=== PATIENT | female | born 1975 | race Caucasian/White ===

== ENCOUNTER 2019-05-20 14:30 | Outpatient (RCR) | payer BC, SELFPAY ==
--- NOTE | 2019-05-13 16:01 | HP.OTEVAL_ITS ---
Patient's Visit Information JOSE MANUEL DOW is a 43 year old F, referred to Occupational Therapy by Leland Escobar DO, with a diagnosis of lymphedema. Date of Evaluation: 05/12/19 Occupational Therapist: ZOEY Storey/Stephani, CHT - Subjective Subjective: This 43 year old female was seen for OT eval with LE lymphedema- pt states this started in February in pubis/abdomen region and has began moving to her right thigh. Pt has extensive sx history. pt states she has colon sx 2003 colectomy - ileostomy, hysterectomy - 2003, - - SB resection with stoma 2004, ureteral stents multiple, nephrectomy RK 2011, bladder surgery 2004, splenectomy 2006, stoma revision 08/2015. 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 - Pain right LE 2 - Lymphedema (Circumferential Measure) Mid-foot: right 20 left 20cm Ankle: right 20cm left 20cm Lower calf: right 18.5cm left 19cm Largest calf: right 29cm left 18cm Below knee: right 28.5 left 29cm Above knee: right 33.5cm left 33.5cm Mid-thigh: right 40.5 left 40.5 Groin: right 50 left 46 Lower Exremity Comments: therapist can see enlargment at pubus region through right groin region - Sensation Sensation Comments: denies - Goals Demonstrate a 20% reduction in edema by d/c: Yes Demonstrate adequate knowledge of self-massage by 2nd week: Yes Demonstrate adequate knowledge skin care/prec by 2nd week: Yes Demonstrate adequate knowledge therapeutic exercises by d/c: Yes Select approp compression garment w/donning/care/wear by d/c: Yes Voice need to replace compression garment every 4-6mo by dc: Yes Goal:: optain custom compression garment - Rehabilitation General Assessment: Pt demo with lymphedema in pubic and right thigh region- pt demo need for skilled therapy 1-2x week for 3 weeks to ed. pt on lymphedema mtg, use of compression garments, ed. pt on self manual lymph massage, and lymph stim ex. Therapist discussed use of custom compression garments to assist with edema mtg. will work with pt on custom that will provide suppot but not interfer with her ileostomy etc. Rehabilitation Potential: Good - Anticipated Interventions Anticipated Interventions: Education re Diagnosis, Manual Lymph Drainage, Education re Life-long lymphedema Management, Education re Skin Care and Precautions, Education re Self Massage Techniques, Education re Correct Donning Tech,Care&Wearing Sched Comp Garments, Home Program - Visit Plan Frequency: 1-2x /Week Duration: 3 Weeks TEXT: Thank you for the opportunity to evaluate your patient. For Medicare and Medicare HMO plans, please review the plan of care and approve it. It will need to be FAXED BACK to us at [phone] for Medicare purposes. Please let me know if there are questions or concerns regarding this plan of care. Physician Signature: Date:
--- NOTE | 2019-09-02 18:37 | HP.OT.NRP ---
HP - Discharge Summary - Patient Information JOSE MANUEL DOW was seen in my office for initial evaluation on 05/12/19. The following Plan of Care was established for this patient: Initial Frequency: 1-2x /Week Initial Duration: 3 Weeks Plan: cont MLD until pt was able to get compression garment - Anticipated Interventions Anticipated Interventions: Education re Diagnosis, Manual Lymph Drainage, Education re Life-long lymphedema Management, Education re Skin Care and Precautions, Education re Self Massage Techniques, Education re Correct Donning Tech,Care&Wearing Sched Comp Garments, Home Program This patient was last seen in our office 05/28/19. Pertinent comments regarding their Occupational therapy will appear below: PT was seen for 3 OT eval for lymphedema and cancelled her last scheduled apt- pt has not scheduled further OT aps and is d/c due to time lapse in care. At this point I will be discontinuing this patient from occupational therapy. I would be happy to see this patient again in the future if found appropriate by the physician. Thank you! Lyubov Polo, OTR/L, CHT
== END 2019-05-20 19:00 | disposition home or self-care (01) ==
LOC: OT 14:30
PROVIDERS: Family Provider Family Medicine; PCP Family Medicine; Referring Provider Internal Medicine Hematology & Oncology; Visit Provider Internal Medicine Hematology & Oncology
DX: I89.0 Lymphedema, not elsewhere classified (principal)
CPT/HCPCS: 97140; 97166

== ENCOUNTER 2020-06-06 13:19 | Outpatient (RCR) | payer BC, SELFPAY ==
[2020-05-23 15:59] LABS: Absolute Lymphocyte Count 5.11 X10^3/uL (0.83-4.51); Absolute Neutrophil Count 5.3 X10^3/uL (2.0-7.7); Basophil# 0.08 X10^3/uL; Basophil% 0.7 % (0-1); Eosinophil# 0.13 X10^3/uL; Eosinophils% 1.1 % (0-5); Hematocrit 37.3 % (37-47); Hemoglobin 11.5 g/dL (12.0-15.0); Lymphocyte # 5.11 X10^3/ul (4.0); Lymphocyte % 43.5 % (19-41); Mean Corp Hgb Conc 30.8 g/dL (32-36); Mean Corpuscular Hgb 29.4 pg (27.0-32.0); Mean Corpuscular Volume 95.4 fL (81-99); Mean Platelet Vol. 11.6 fl (6.2-12.0); Monocyte# 1.01 X10^3/uL; Monocyte% 8.6 % (0-10); NRBC Flagged by Analyzer 0.5 % (0-5); POSITIVE DIFFERENTIAL YES; Platelet Count 635 K/mm3 (150-450); RBC Distribution Width CV 18.2 % (11.6-14.6); RBC Distribution Width SD 63.7 fl (35.1-43.9); Red Blood Count 3.91 M/mm3 (4.2-5.4); White Blood Count 11.8 K/mm3 (4.4-11.0)
[2020-05-23 16:02] LABS: Differential Indicated SCAN CRITERIA MET
[2020-05-23 16:18] LABS: ALB/GLOB Ratio 0.7 RATIO (0.9-2.4); AST(SGOT) 18 U/L (15-37); Alanine Aminotransfer ALT/SGPT 9 U/L (13-56); Albumin, Serum 3.2 g/dL (3.2-5.0); Alkaline Phosphatase 159 U/L (45-117); Anion Gap 7 (5-15); BUN 33 mg/dL (7-18); BUN/Creat Ratio 35.1 RATIO (10-20); Calcium,Total 9.1 mg/dL (8.5-10.1); Chloride 103 mmol/L (98-107); Creatinine, Serum 0.94 mg/dL (0.55-1.02); EST Glomerular Filtration Rate 68 mL/min (>60); Est Glom Filt Rate - Afr Amer 82 mL/min (>60); Globulin 4.4 g/dL (2.2-4.2); Glucose 136 mg/dL (74-106); Magnesium 2.3 mg/dL (1.6-2.6); Phosphorus 2.8 mg/dL (2.5-4.9); Potassium 3.5 mmol/L (3.5-5.1); Protein, Total 7.6 g/dL (6.4-8.2); Sodium Level 140 mmol/L (136-145)
[2020-05-23 16:22] LABS: Differential Comment SCANNED
[2020-05-30 15:33] LABS: Hematocrit 37.2 % (37-47); Hemoglobin 11.4 g/dL (12.0-15.0); Mean Corp Hgb Conc 30.6 g/dL (32-36); Mean Corpuscular Hgb 29.3 pg (27.0-32.0); Mean Corpuscular Volume 95.6 fL (81-99); Mean Platelet Vol. 11.9 fl (6.2-12.0); Platelet Count 557 K/mm3 (150-450); RBC Distribution Width CV 17.8 % (11.6-14.6); RBC Distribution Width SD 61.7 fl (35.1-43.9); Red Blood Count 3.89 M/mm3 (4.2-5.4); White Blood Count 13.3 K/mm3 (4.4-11.0)
[2020-05-31 16:36] LABS: Absolute Lymphocyte Count 2.01 X10^3/uL (0.83-4.51); Absolute Neutrophil Count 11.7 X10^3/uL (2.0-7.7); Basophil# 0.07 X10^3/uL; Basophil% 0.5 % (0-1); Eosinophil# 0.01 X10^3/uL; Eosinophils% 0.1 % (0-5); Hematocrit 36.1 % (37-47); Hemoglobin 11.2 g/dL (12.0-15.0); Lymphocyte # 2.01 X10^3/ul (4.0); Lymphocyte % 13.5 % (19-41); Mean Corpuscular Volume 93.5 fL (81-99); Mean Platelet Vol. 11.8 fl (6.2-12.0); Monocyte# 0.95 X10^3/uL; Monocyte% 6.4 % (0-10); NRBC Flagged by Analyzer 0.1 % (0-5); Neutrophil # 11.66 X10^3/uL (2.7-7.7); Neutrophil % 78.6 % (47-70); Platelet Count 540 K/mm3 (150-450); RBC Distribution Width CV 17.2 % (11.6-14.6); RBC Distribution Width SD 58.8 fl (35.1-43.9); Red Blood Count 3.86 M/mm3 (4.2-5.4); White Blood Count 14.8 K/mm3 (4.4-11.0)
[2020-05-31 17:16] LABS: ALB/GLOB Ratio 0.8 RATIO (0.9-2.4); AST(SGOT) 12 U/L (15-37); Alanine Aminotransfer ALT/SGPT 8 U/L (13-56); Albumin, Serum 3.6 g/dL (3.2-5.0); Alkaline Phosphatase 132 U/L (45-117); Anion Gap 6 (5-15); BUN 43 mg/dL (7-18); BUN/Creat Ratio 30.3 RATIO (10-20); Calcium,Total 9.3 mg/dL (8.5-10.1); Chloride 104 mmol/L (98-107); Creatinine, Serum 1.42 mg/dL (0.55-1.02); EST Glomerular Filtration Rate 42 mL/min (>60); Est Glom Filt Rate - Afr Amer 51 mL/min (>60); Globulin 4.3 g/dL (2.2-4.2); Glucose 170 mg/dL (74-106); Magnesium 2.3 mg/dL (1.6-2.6); Potassium 4.7 mmol/L (3.5-5.1); Protein, Total 7.9 g/dL (6.4-8.2); Sodium Level 139 mmol/L (136-145)
[2020-05-31 17:20] LABS: Differential Indicated MANUAL DIFF; Myelocyte 1 (0-0); Neutrophil-Band 1 % (0-5); Neutrophil-Segmented 48 % (47-70); Total Cells Counted 100 (MANUAL DIFF)
[2020-05-31 17:21] LABS: Acanthocytes 1+; Anisocytosis 1+; Burr Cells 1+; Differential Comment SCANNED; Eosinophil 2 % (0-5); Lymphocyte 38 % (19-41); Monocyte 10 % (0-10); Platelet Estimate SLT INC (ADEQ)
[2020-05-31 17:23] LABS: Absolute Neutrophil Count 6.5 X10^3/uL (2.0-7.7); Lymphocyte # 5.05 X10^3/ul (4.0); Neutrophil # 6.52 X10^3/uL (2.7-7.7)
[2020-05-31 17:24] LABS: Absolute Lymphocyte Count 5.05 X10^3/uL (0.83-4.51)
[2020-06-01 12:45] LABS: Pathologist Review Reviewed
[2020-06-03 10:29] LABS: EST Glomerular Filtration Rate 57 mL/min (>60); Est Glom Filt Rate - Afr Amer 69 mL/min (>60)
[2020-06-06 13:44] LABS: ALB/GLOB Ratio 0.7 RATIO (0.9-2.4); AST(SGOT) 16 U/L (15-37); Alanine Aminotransfer ALT/SGPT 7 U/L (13-56); Albumin, Serum 3.2 g/dL (3.2-5.0); Alkaline Phosphatase 117 U/L (45-117); Anion Gap 9 (5-15); BUN 35 mg/dL (7-18); BUN/Creat Ratio 27.6 RATIO (10-20); Calcium,Total 9.2 mg/dL (8.5-10.1); Chloride 107 mmol/L (98-107); Creatinine, Serum 1.27 mg/dL (0.55-1.02); EST Glomerular Filtration Rate 48 mL/min (>60); Est Glom Filt Rate - Afr Amer 58 mL/min (>60); Globulin 4.4 g/dL (2.2-4.2); Glucose 208 mg/dL (74-106); Magnesium 2.3 mg/dL (1.6-2.6); Phosphorus 2.8 mg/dL (2.5-4.9); Potassium 4.1 mmol/L (3.5-5.1); Protein, Total 7.6 g/dL (6.4-8.2); Sodium Level 139 mmol/L (136-145); Triglycerides 299 mg/dL
[2020-06-06 13:48] LABS: Vitamin D,25 Hydroxy 20.2 ng/mL
[2020-06-06 14:07] LABS: Absolute Neutrophil Count 9.2 X10^3/uL (2.0-7.7); Basophil# 0.07 X10^3/uL; Basophil% 0.6 % (0-1); Eosinophil# 0.15 X10^3/uL; Eosinophils% 1.3 % (0-5); Hematocrit 35.7 % (37-47); Lymphocyte % 9.6 % (19-41); Mean Corp Hgb Conc 30.8 g/dL (32-36); Mean Corpuscular Volume 94.2 fL (81-99); Mean Platelet Vol. 12.1 fl (6.2-12.0); Monocyte# 0.85 X10^3/uL; Monocyte% 7.4 % (0-10); NRBC Flagged by Analyzer 0.2 % (0-5); Neutrophil # 9.18 X10^3/uL (2.7-7.7); Neutrophil % 80.2 % (47-70); Platelet Count 441 K/mm3 (150-450); RBC Distribution Width CV 17.3 % (11.6-14.6); RBC Distribution Width SD 59.7 fl (35.1-43.9); Red Blood Count 3.79 M/mm3 (4.2-5.4); White Blood Count 11.5 K/mm3 (4.4-11.0)
== END 2020-06-13 18:00 | disposition home or self-care (01) ==
LOC: HHLAB 13:19
PROVIDERS: PCP Family Medicine
DX: R78.81 Bacteremia (principal)
CPT/HCPCS: 80053; 82306; 82565; 83735; 84100; 84478; 85025; 85027

== ENCOUNTER → 2021-05-22 14:11 | Outpatient (CLI) | payer BC, SELFPAY ==
--- NOTE | 2021-05-22 14:13 | VDLE_ITS ---
Reason For Study: Leg swelling RIGHT GSV is normal. CFV is compressible, spontaneous, phasic, competent and demonstrates normal augmentation. FV is compressible, spontaneous, phasic, competent and demonstrates normal augmentation. POP V is compressible, spontaneous, phasic, competent and demonstrates normal augmentation. T/P Trunk is compressible. PTV is compressible. RT PerV is compressible. Procedure This is a venous duplex using B-mode, color flow and spectral Doppler. Exam performed in department. A preliminary report was called and/or faxed to [facility]. VL/Venous Duplex US, Unilateral Interpretation Summary There is no evidence of right lower extremity deep vein thrombosis. Right great saphenous vein appears patent and compressible segmentally. Ordering Physician: Leland Escobar Referring Physician: Santo Ramsey Performed By: Zabrina Hanks RVT
== END ==
PROVIDERS: PCP Family Medicine; Visit Provider Internal Medicine Hematology & Oncology
DX: M79.89 Other specified soft tissue disorders (principal)
CPT/HCPCS: 93971

== ENCOUNTER 2024-07-08 09:30 | Outpatient (RCR) | payer BC, SELFPAY ==
[2024-07-08 10:03] VITALS: BP 116/61; PULSE 89; RESP 18; TEMP 36.6
== END 2024-07-13 23:59 | disposition home or self-care (01) ==
LOC: WC 09:30
PROVIDERS: PCP Family Medicine; Referring Provider Internal Medicine Hematology & Oncology; Visit Provider Nurse Practitioner
DX: L59.8 Other specified disorders of the skin and subcutaneous tissue related to radiation (principal); Z93.2 Ileostomy status; Z93.6 Other artificial openings of urinary tract status; D49.0 Neoplasm of unspecified behavior of digestive system; Y84.2 Radiological procedure and radiotherapy as the cause of abnormal reaction of the patient, or of later complication, without mention of misadventure at the time of the procedure; N30.90 Cystitis, unspecified without hematuria; Z79.899 Other long term (current) drug therapy; Z92.3 Personal history of irradiation; R63.0 Anorexia
CPT/HCPCS: 99213; G0463

== ENCOUNTER 2024-07-22 08:39 | Outpatient (CLI) | payer BC, SELFPAY ==
[2024-07-22 08:48] VITALS: BP 125/59; PULSE 87; RESP 16; TEMP 36.9; O2SAT 99; BMI 18.3
[2024-07-22 09:31] VITALS: BP 107/48; PULSE 83; RESP 16; TEMP 36.8
[2024-07-22 10:36] VITALS: BP 119/55; PULSE 79; RESP 16; TEMP 36.2; O2SAT 92
[2024-07-22 10:56] VITALS: BP 123/55; PULSE 80; RESP 16; TEMP 36.7; O2SAT 99
[2024-07-22 11:18] VITALS: BP 123/55; PULSE 80; RESP 14; TEMP 36.7
--- NOTE | 2024-09-23 10:48 | HBO.PN.PCM_ITS ---
History of Present Illness Date of Service: 09/22/24 Chief Complaint: Radionecrosis of the brain History of Wound: This is a 48-year-old female with a history of mucinous adenocarcinoma of the colon in 2005 for which she has undergone multiple resections for metastatic disease. As result, she has required an ileostomy and nephrostomy, and resultant short-bowel syndrome. As result, the patient the patient requires nutrition by means of central venous administration of TPN. The patient also has a history of right radical nephrectomy. She has received radiation therapy to the abdomen and chemotherapy with respect to her metastatic colon cancer. 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 She has been scheduled and preauthorized for hyperbaric oxygen therapy for a total of 30 treatments. The indications and risks of hyperbaric oxygen therapy have been thoroughly explained. The expected benefits have also been discussed with the patient. Patient has elected to proceed, and has provided the appropriate consent. Objective Data Objective Data The patient underwent hyperbaric oxygen therapy, the 1st of an expected 30 such sessions. Hyperbaric oxygen therapy was administered as per the facility protocol. Hyperbaric oxygen therapy was administered for 90 minutes at 2 eboni with no air breaks. The patient tolerated hyperbaric oxygen therapy well, without complaints or complications. Upon emergence from the hyperbaric chamber, the patient's vital signs remained stable. The patient was discharged in good condition. Vital Signs: Vital Signs Temp Pulse Resp BP Pulse Ox O2 Del Method 98.1 F 80 14 123/55 H 99 Room Air 07/22/24 11:18 07/22/24 11:18 07/22/24 11:18 07/22/24 11:18 07/22/24 10:56 07/22/24 10:56 Oxygen Delivery Method Room Air Weight: 110 lb Body Mass Index (BMI) 18.3 Exam Physical Exam Const alert, oriented x3 and no apparent distress Constitutional Narrative: The patient appears frail and chronically ill. General Appearance: cooperative HEENT normocephalic and TM's normal bilaterally Head and Scalp: atraumatic Eyes EOMs intact bilaterally Neck no JVD General: trachea midline Resp normal respiratory effort and no use of accessory muscles Resp Narrative: Respirations were noted to be unlabored. Effort and Inspection: able to speak in complete sentences Cardio regular rate Psych affect normal Appearance: grossly normal and well kempt Speech: normal speech Charges/Coding Wound Center CF Procedures HBO Supervision: [id number] Hyperbaric Oxygen; supervision Assessment/Plan Assessment/Plan (1) Radionecrosis: CODE(S): L59.8 - Other specified disorders of the skin and subcutaneous tissue related to radiation; Y84.2 - Radiological procedure and radiotherapy as the cause of abnormal reaction of the patient, or of later complication, without mention of misadventure at the time of the procedure (2) History of colon cancer: CODE(S): Z85.038 - Personal history of other malignant neoplasm of large intestine (3) Rectal tumor: CODE(S): D49.0 - Neoplasm of unspecified behavior of digestive system (4) On total parenteral nutrition (TPN): CODE(S): Z78.9 - Other specified health status (5) Short bowel syndrome: CODE(S): K91.2 - Postsurgical malabsorption, not elsewhere classified (6) H/O unilateral nephrectomy: CODE(S): Z90.5 - Acquired absence of kidney (7) Ileostomy status: CODE(S): Z93.2 - Ileostomy status PLAN: Plan This is a 48-year-old female with metastatic cancer to the brain, for which she has previously undergone radiation therapy. As result, she has developed radio necrosis of the brain, for which she is now to undergo sessions of hyperbaric oxygen therapy. The patient has tolerated her initial hyperbaric oxygen therapy session well, and hyperbaric oxygen therapy sessions will continue as per the patient's medical plan.
== END 2024-07-22 23:59 | disposition home or self-care (01) ==
LOC: MEDOUTP 08:40
PROVIDERS: PCP Family Medicine; Referring Provider Internal Medicine Hematology & Oncology; Visit Provider Internal Medicine Hematology & Oncology
DX: D53.1 Other megaloblastic anemias, not elsewhere classified (principal); D63.8 Anemia in other chronic diseases classified elsewhere; D50.0 Iron deficiency anemia secondary to blood loss (chronic)
CPT/HCPCS: 36430; 86850; 86900; 86901; 86920; 86922; P9016; A4216

== ENCOUNTER 2024-09-25 10:30 | Outpatient (RCR) | payer BC, SELFPAY ==
[2024-07-14 00:47] VITALS: BP 116/61; PULSE 89; RESP 18; TEMP 36.6
[2024-09-22 13:48] VITALS: BP 142/78; BP 189/94; PULSE 76; PULSE 83; RESP 16; TEMP 35.7; TEMP 35.9
[2024-09-23 12:44] VITALS: BP 138/76; BP 192/85; PULSE 85; PULSE 90; RESP 17; RESP 18; TEMP 36.2; TEMP 36.4
--- NOTE | 2024-09-23 13:39 | PCM.HBO.PN ---
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 Patient just got out of the hospital from [facility] over about a month ago she takes care of herself she has an ileostomy and a nephrostomy tube. She also has a PICC line for her TPN. That she takes care of herself. Progress of Wound: Patient tolerated treatments well vital signs were stable she has no concerns this was #2 of #30 treatments that she will receive Subjective Subjective Patient was pleased and will continue treatments Objective Data Objective Data Vital signs are stable and patient was admitted and discharged with good condition Vital Signs: Vital Signs Temp Pulse Resp BP 97.5 F L 90 18 192/85 H 09/23/24 12:44 09/23/24 12:44 09/23/24 12:44 09/23/24 12:44 Lab / Micro Data Attestation: I reviewed the patient's lab results. Exam Physical Exam Const alert, oriented x3 and no apparent distress Constitutional Narrative: The patient appears frail and chronically ill. General Appearance: cooperative HEENT normocephalic and TM's normal bilaterally Head and Scalp: atraumatic Eyes EOMs intact bilaterally Neck no JVD General: trachea midline Resp normal respiratory effort and no use of accessory muscles Resp Narrative: Respirations were noted to be unlabored. Effort and Inspection: able to speak in complete sentences Cardio regular rate Psych affect normal Appearance: grossly normal and well kempt Speech: normal speech Nursing Assessment and Debridement Post-Debridement Measurements and Additional Note: Post-Debridement Measurements/Treatment WC - Nurse 3 - General Ulcer D/C NN Start: 07/23/24 08:14 Freq: Status: Active Protocol: Activity Type Activity Date Activity User E-sign Co-sign Detail Recorded Client Recorded Date Recorded By Document 09/22/24 13:48 JF 0000 09/22/24 13:58 JF 09/22/24 13:48 Pain Scale: 0-10 Numeric Is Patient Pain Free? Yes WC - Visit Discharge Discharge Condition Stable Ambulatory Status Ambulatory Transportation Private Auto Medication Reconcilliation completed & Yes provided to patient/care provider Clinical Summary of Care Provided Yes Assessment/Plan Assessment/Plan (1) Radionecrosis: CODE(S): L59.8 - Other specified disorders of the skin and subcutaneous tissue related to radiation; Y84.2 - Radiological procedure and radiotherapy as the cause of abnormal reaction of the patient, or of later complication, without mention of misadventure at the time of the procedure (2) History of colon cancer: CODE(S): Z85.038 - Personal history of other malignant neoplasm of large intestine (3) Rectal tumor: CODE(S): D49.0 - Neoplasm of unspecified behavior of digestive system (4) On total parenteral nutrition (TPN): CODE(S): Z78.9 - Other specified health status (5) Short bowel syndrome: CODE(S): K91.2 - Postsurgical malabsorption, not elsewhere classified QUALIFIERS: Short bowel syndrome type: unspecified whether colon in continuity Qualified Code(s): K90.829 - Short bowel syndrome, unspecified (6) H/O unilateral nephrectomy: CODE(S): Z90.5 - Acquired absence of kidney (7) Ileostomy status: CODE(S): Z93.2 - Ileostomy status PLAN: Plan This is a 48-year-old female with metastatic cancer to the brain, for which she has previously undergone radiation therapy. As result, she has developed radionecrosis of the brain, for which she is now to undergo sessions of hyperbaric oxygen therapy. The patient has tolerated her initial hyperbaric oxygen therapy session well, and hyperbaric oxygen therapy sessions will continue as per the patient's medical plan.
--- NOTE | 2024-09-24 10:53 | PN.PCM_ITS ---
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 Patient just got out of the hospital from [facility] over about a month ago she takes care of herself she has an ileostomy and a nephrostomy tube. She also has a PICC line for her TPN. That she takes care of herself. Progress of Wound: Patient presents today for hyperbaric oxygen therapy treatment. Today's session represents the 3rd treatment of a planned 30 sessions. Tolerance: Hyperbaric oxygen therapy was administered as per the facility's protocol. 100% oxygen at 2 RADHA for 90 minutes without air breaks. Adrianna tolerated hyperbaric oxygen therapy without any complaints or complications. Upon emergence from the chamber, her vitals remained stable and she was discharged in stable condition. Pre and post blood glucose readings as documented. Objective Data Objective Data Vital Signs: Vital Signs Temp Pulse Resp BP 97.5 F L 90 18 192/85 H 09/23/24 12:44 09/23/24 12:44 09/23/24 12:44 09/23/24 12:44 Charges/Coding Wound Center CF Procedures HBO Supervision: [id number] Hyperbaric Oxygen; supervision Physical Exam Const alert and oriented x3 General Appearance: cooperative HEENT normocephalic and TM's normal bilaterally Eyes PERRL Resp normal respiratory effort and clear to auscultation bilaterally Effort and Inspection: able to speak in complete sentences Cardio regular rate and regular rhythm Extremity normal capillary refill Neuro CN's II-XII intact bilaterally Psych affect normal Debridement Note Debridement Note Post-Debridement Measurements and Additional Note: Post-Debridement Measurements/Treatment WC - Nurse 3 - General Ulcer D/C NN Start: 07/23/24 08:14 Freq: Status: Active Protocol: Activity Type Activity Date Activity User E-sign Co-sign Detail Recorded Client Recorded Date Recorded By Document 09/22/24 13:48 JF 0000 09/22/24 13:58 JF 09/22/24 13:48 Pain Scale: 0-10 Numeric Is Patient Pain Free? Yes WC - Visit Discharge Discharge Condition Stable Ambulatory Status Ambulatory Transportation Private Auto Medication Reconcilliation completed & Yes provided to patient/care provider Clinical Summary of Care Provided Yes Assessment/Plan Assessment/Plan (1) Radionecrosis: CODE(S): L59.8 - Other specified disorders of the skin and subcutaneous tissue related to radiation; Y84.2 - Radiological procedure and radiotherapy as the cause of abnormal reaction of the patient, or of later complication, without mention of misadventure at the time of the procedure (2) History of colon cancer: CODE(S): Z85.038 - Personal history of other malignant neoplasm of large intestine (3) Rectal tumor: CODE(S): D49.0 - Neoplasm of unspecified behavior of digestive system (4) On total parenteral nutrition (TPN): CODE(S): Z78.9 - Other specified health status (5) Short bowel syndrome: CODE(S): K91.2 - Postsurgical malabsorption, not elsewhere classified QUALIFIERS: Short bowel syndrome type: unspecified whether colon in continuity Qualified Code(s): K90.829 - Short bowel syndrome, unspecified (6) H/O unilateral nephrectomy: CODE(S): Z90.5 - Acquired absence of kidney (7) Ileostomy status: CODE(S): Z93.2 - Ileostomy status PLAN: Plan This is a 48-year-old female with metastatic cancer to the brain, for which she has previously undergone radiation therapy. As result, she has developed radionecrosis of the brain, for which she is now to undergo sessions of hyperb [facility] oxygen therapy. The patient has tolerated her initial hyperbaric oxygen therapy session well, and hyperbaric oxygen therapy sessions will continue as per the patient's medical plan.
[2024-09-24 12:26] VITALS: BP 188/88; BP 190/85; PULSE 80; PULSE 92; RESP 16; TEMP 36; TEMP 36.2
[2024-09-25 11:58] VITALS: BP 136/69; BP 148/72; PULSE 76; PULSE 79; RESP 15; RESP 17; TEMP 36.1
--- NOTE | 2024-09-25 12:59 | PCM.HBO.PN ---
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 Patient just got out of the hospital from [facility] over about a month ago she takes care of herself she has an ileostomy and a nephrostomy tube. She also has a PICC line for her TPN. That she takes care of herself. Progress of Wound: Patient presents today for hyperbaric oxygen therapy treatment. Today's session represents the 4th treatment of a planned 30 sessions. Tolerance: Hyperbaric oxygen therapy was administered as per the facility's protocol. 100% oxygen at 2 RADHA for 90 minutes without air breaks. Luci tolerated hyperbaric oxygen therapy without any complaints or complications. Upon emergence from the chamber, her vitals remained stable and she was discharged in stable condition. Objective Data Objective Data Vital Signs: Vital Signs Temp Pulse Resp BP 97.1 F L 92 16 188/88 H 09/24/24 12:26 09/24/24 12:26 09/24/24 12:26 09/24/24 12:26 Exam Physical Exam Const alert, oriented x3 and no apparent distress Psych mental status grossly normal, thought process normal, cooperative, affect normal and speech normal Nursing Assessment and Debridement Post-Debridement Measurements and Additional Note: Post-Debridement Measurements/Treatment WC - Nurse 3 - General Ulcer D/C NN Start: 07/23/24 08:14 Freq: Status: Active Protocol: Activity Type Activity Date Activity User E-sign Co-sign Detail Recorded Client Recorded Date Recorded By Document 09/22/24 13:48 JF 0000 09/22/24 13:58 JF 09/22/24 13:48 Pain Scale: 0-10 Numeric Is Patient Pain Free? Yes WC - Visit Discharge Discharge Condition Stable Ambulatory Status Ambulatory Transportation Private Auto Medication Reconcilliation completed & Yes provided to patient/care provider Clinical Summary of Care Provided Yes Assessment/Plan Assessment/Plan (1) Radionecrosis: CODE(S): L59.8 - Other specified disorders of the skin and subcutaneous tissue related to radiation; Y84.2 - Radiological procedure and radiotherapy as the cause of abnormal reaction of the patient, or of later complication, without mention of misadventure at the time of the procedure (2) History of colon cancer: CODE(S): Z85.038 - Personal history of other malignant neoplasm of large intestine (3) Rectal tumor: CODE(S): D49.0 - Neoplasm of unspecified behavior of digestive system (4) On total parenteral nutrition (TPN): CODE(S): Z78.9 - Other specified health status (5) Short bowel syndrome: CODE(S): K91.2 - Postsurgical malabsorption, not elsewhere classified QUALIFIERS: Short bowel syndrome type: unspecified whether colon in continuity Qualified Code(s): K90.829 - Short bowel syndrome, unspecified (6) H/O unilateral nephrectomy: CODE(S): Z90.5 - Acquired absence of kidney (7) Ileostomy status: CODE(S): Z93.2 - Ileostomy status PLAN: Plan This is a 48-year-old female with metastatic cancer to the brain, for which she has previously undergone radiation therapy. As result, she has developed radionecrosis of the brain and she is now undergoing a planned 30 sessions of hyperbaric oxygen therapy. The patient has tolerated her 4th of 30 planned hyperbaric oxygen therapy sessions well, and hyperbaric oxygen therapy sessions will continue as per the patient's medical plan.
== END 2024-10-13 23:59 | disposition home or self-care (01) ==
LOC: WC 10:30
PROVIDERS: PCP Family Medicine; Referring Provider Internal Medicine Hematology & Oncology; Visit Provider Nurse Practitioner
DX: L59.8 Other specified disorders of the skin and subcutaneous tissue related to radiation (principal); Z93.2 Ileostomy status; Z93.6 Other artificial openings of urinary tract status; K91.2 Postsurgical malabsorption, not elsewhere classified; D49.0 Neoplasm of unspecified behavior of digestive system; Y84.2 Radiological procedure and radiotherapy as the cause of abnormal reaction of the patient, or of later complication, without mention of misadventure at the time of the procedure; N30.90 Cystitis, unspecified without hematuria; Z79.899 Other long term (current) drug therapy; Z85.038 Personal history of other malignant neoplasm of large intestine; Z90.5 Acquired absence of kidney
CPT/HCPCS: 99183; G0277

== ENCOUNTER 2024-10-12 22:50 | Inpatient (IN) | payer BC, SELFPAY ==
--- NOTE | 2024-10-12 00:05 | RAD_ITS ---
STUDY: X-RAY CHEST REASON FOR EXAM: Female, 49 years old. seizure TECHNIQUE: Single frontal view of the chest. COMPARISON: June 09, 2009 images only without report FINDINGS: Right IJ catheter terminates 6 cm below the atrial caval junction. This appears to been advanced or replaced since the previous exam. It appears to be kinked proximally probably external to the patient. No pneumothorax. The lungs are clear and expanded. There is no demonstrated pleural abnormality. Normal size heart. Normal mediastinum and antonio. Normal visualized pulmonary arteries. Normal visualized aortic arch and descending thoracic aorta. Normal visualized thoracic spine. Normal visualized ribs, clavicles, and shoulders. There is no demonstrated abnormality of the visualized soft tissue structures of the upper abdomen. RAD/Chest 1 View (Portable) IMPRESSION: Right IJ catheter as above appears to terminate in the right atrium and appears kinked proximally. Electronically Signed: Brian Dodson MD at 1:11 [facility] ,
[2024-10-12 22:51] VITALS: BP 173/69; PULSE 88; RESP 22; TEMP 36.1; O2SAT 91; BMI 18.0
[2024-10-12 22:52] VITALS: RESP 22; O2SAT 93
--- NOTE | 2024-10-12 23:31 | EKG12_ITS ---
Test Reason : SEIZURE Blood Pressure : */* mmHG Vent. Rate : 107 BPM Atrial Rate : 107 BPM P-R Int : 174 ms QRS Dur : 84 ms QT Int : 336 ms P-R-T Axes : 66 40 54 degrees QTcB Int : 448 ms Sinus tachycardia Otherwise normal ECG Confirmed by PRAVEEN ISBELL, ALVAREZ ([id number]), continuity editor LAWRENCE KHAN ([id number]) on 10/15/2024 6:09:38 AM Referred By: Confirmed By: ALVAREZ MORTON MD
--- NOTE | 2024-10-12 23:31 | CT_ITS ---
STUDY: CT BRAIN WITHOUT CONTRAST REASON FOR EXAM: Female, 49 years old. seizure RADIATION DOSAGE (If Supplied By Facility): CTDIvol = ( 44.99 ) mGy, DLP = ( 863.60 ) mGycm TECHNIQUE: Transaxial CT imaging of the brain was performed without administration of intravenous contrast material. Individualized dose optimization techniques were used for this CT. The protocol utilizes one or more of the following dose reduction techniques: automated exposure control, adjustment of mA and/or kV according to patient size,and/or use of iterative reconstruction technique. COMPARISON: No relevant priors. FINDINGS: Normal soft tissue structures. Normal calvarium. Normal size ventricles and extra-axial spaces for the patient''s age. Normal white matter tracts of the cerebral hemispheres. Normal basal ganglia and thalami. Normal brainstem. Normal cerebellum. There is no intracranial hemorrhage. There are no findings of an acute ischemic infarction. Normal visualized paranasal sinuses. CT/Brain/Head without Contrast IMPRESSION: Normal unenhanced CT scan of the brain. Electronically Signed: Brian Dodson MD at 1:07 EST ,
--- NOTE | 2024-10-12 23:34 | ED.RN ---
2330: MULTIPLE ATTEMPTS AT A PERIPHERAL IV BY THIS NURSE AND Sybil NJ. BLOOD OBTAINED BY PERIPHERAL VENIPUNCTURE. DR. Sybil MURPHY NOTIFIED OF FAILED ATTEMPTS. RESPONSE BY PROVIDER, THERE ARE NO IV MEDICATIONS AT THIS TIME. WE CAN UTILIZE CENTRAL LINE ACCESS IF NECESSARY OR GIVE IM MEDICATION. FAMILY NOTIFIED AT THIS TIME.
[2024-10-12 23:51] VITALS: BP 139/76; PULSE 94; RESP 16; O2SAT 95
[2024-10-13] VITALS (19 sets, daily range): BP systolic 111–166; BP diastolic 57–80; PULSE 81–910; RESP 12–23; TEMP 36.6–37.2; O2SAT 95–99; BMI 16.5
[2024-10-13 00:03] LABS: Alcohol, Blood (Medical)-Serum < 3.0 mg/dL
[2024-10-13 00:12] LABS: Anion Gap 16 (5-15); BUN 39 mg/dL (7-18); Calcium,Total 9.5 mg/dL (8.5-10.1); Chloride 99 mmol/L (98-107); Creatinine, Serum 1.86 mg/dL (0.55-1.02); EST Glomerular Filtration Rate 30 mL/min (>60); Est Glom Filt Rate - Afr Amer 37 mL/min (>60); Estimated Creatinine Clearance 27.74 ml/min; Glucose 113 mg/dL (74-106); Potassium 4.5 mmol/L (3.5-5.1); Sodium Level 140 mmol/L (136-145)
[2024-10-13 00:21] LABS: Absolute Lymphocyte Count 1.43 X10^3/uL (0.83-4.51); Absolute Neutrophil Count 8.3 X10^3/uL (2.0-7.7); Basophil# 0.09 X10^3/uL; Basophil% 0.8 % (0-1); Eosinophil# 0.28 X10^3/uL; Eosinophils% 2.6 % (0-5); Hematocrit 30.7 % (37-47); Hemoglobin 9.6 g/dL (12.0-15.0); Lymphocyte # 1.43 X10^3/ul (0.83-4.51); Mean Corp Hgb Conc 31.3 g/dL (32-36); Mean Corpuscular Hgb 28.2 pg (27.0-32.0); Mean Platelet Vol. 11.8 fl (6.2-12.0); Monocyte# 0.88 X10^3/uL; NRBC Flagged by Analyzer 0 % (0-5); Neutrophil # 8.25 X10^3/uL (2.7-7.7); Neutrophil % 75.2 % (47-70); POSITIVE COUNT YES; RBC Distribution Width CV 16.7 % (11.6-14.6); RBC Distribution Width SD 55.4 fl (35.1-43.9); Red Blood Count 3.41 M/mm3 (4.2-5.4)
[2024-10-13 00:26] LABS: Differential Indicated SCAN CRITERIA MET; Platelet Count 809 K/mm3 (150-450)
[2024-10-13 00:39] LABS: Mucous, Urine 0 SEEN /hpf (<or=2+); Squamous Epithelial Cells - UA 0 SEEN /hpf (5-10)
[2024-10-13 00:42] LABS: Color, Urine Yellow (Yellow); Glucose, Dipstick Normal (Normal); Ketone-Dipstick Negative (Negative); Leukocyte Esterase-Dipstick 500 /ul (Negative); Nitrite-Dipstick Negative (Negative); Occult Blood-Urine 250 /ul (Negative); Protein-Dipstick 500 mg/dl (Negative); Specific Gravity, Urine 1.015 (1.002-1.030); Urine Bilirubin Dipstick Negative (Negative); Urine Clarity Cloudy (Clear); Urine Urobilinogen Normal (Normal)
[2024-10-13 00:50] LABS: Platelet Estimate MKD INC (ADEQ)
[2024-10-13 00:53] LABS: Bacteria 1+ /hpf (None Seen); Red Blood Cells-Urine 25-50 SEEN /hpf (0-5); White Blood Cells 50-100 SEEN /hpf (0-5)
[2024-10-13] MEDS: Acetaminophen 500 MG Tablet 1000 MG PO (00:56)
--- NOTE | 2024-10-13 00:59 | ED.RN ---
PT. OSTOMY CHANGED AFTER APPLIANCE STARTED LEAKING AFTER ARRIVAL. VIKRAM-STOMA SKIN INTACT, BEEFY RED, W/ CONTINUOUS OUTPUT AT TIME OF BAG CHANGE. NEW APPLIANCE APPLIED W/ NO DIFFICULTY.
[2024-10-13 01:27] LABS: Amphetamine Urine VISTA NEGATIVE (<1000 ng/mL); Barbiturate Urine VISTA NEGATIVE (< 200 ng/mL); Benzodiazepine Urine VISTA POSITIVE (< 200 ng/mL); Cocaine Urine VISTA NEGATIVE (< 300 ng/mL); Ecstacy Urine VISTA NEGATIVE (< 500 ng/mL); Methadone Urine VISTA POSITIVE (< 300 ng/mL); PCP Urine VISTA NEGATIVE (< 25 ng/mL); THC Urine VISTA NEGATIVE (< 50 ng/mL); Vista UDS pH Range 6
[2024-10-13] MEDS: levETIRAcetam IV 1,000 MG/100 ML BAG 400 MG IV ×2 (02:37→15:23)
--- NOTE | 2024-10-13 05:34 | EDS_ITS ---
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 This evening family states the patient had an apparent seizure as her arms became contracted and her legs became stiff and she did not respond. Secondary to this EMS was called. EMS reports when they arrived there was no obvious seizure activity the patient appeared postictal. However upon transport to the emergency department there was reportedly 3 more seizures that were short-lived in nature without return to her baseline mental status. Upon arrival to the ER the patient is postictal and cannot offer any further history Family reports patient's been taking her medications as directed and denies any history of alcohol abuse or previous alcohol withdrawal [facility] Medical History On total parenteral nutrition (TPN) History of colon cancer Short bowel syndrome Rectal tumor Hx of brain cancer Radionecrosis SHAD (acute kidney injury) Hydronephrosis of left kidney Hydroureter on left Home Medications ?Medication ?Instructions ?Recorded ?Last Taken ?Type cholecalciferol (vitamin D3) 1,250 50,000 unit PO QWEEK 03/06/16 08/27/16 History mcg (50,000 unit) capsule cyanocobalamin (vitamin B-12) 1,000 mcg IM Q30D 03/06/16 03/05/16 History 1,000 mcg/mL injection solution diphenoxylate-atropine 2.5 2 tab PO TIDCM ##180 03/09/16 Unknown Rx mg-0.025 mg tablet D5ns 2,000 - 3,000 ml IV BID 06/19/16 Unknown History loperamide 2 mg capsule 2 mg PO TIDCM PRN loose stool 06/19/16 Unknown History octreotide acetate 100 mcg/mL 300 mcg IV QHS 06/19/16 Unknown History injection solution Omeprazole [Prilosec] 40 mg PO DAILY 09/03/16 Unknown History amlodipine 10 mg tablet 10 mg PO DAILY 09/03/16 Unknown History carvedilol 25 mg tablet 50 mg PO BID 07/08/24 Unknown History gabapentin 100 mg capsule 100 mg PO Q12.TCU 07/08/24 Unknown History hydralazine 50 mg tablet 100 mg PO BID 07/08/24 Unknown History hydromorphone 4 mg tablet See Rx Instructions PO .COMPLEX 07/08/24 Unknown History lorazepam 0.5 mg tablet 0.5 mg PO Q6H PRN PRN anxiety 07/08/24 Unknown History methadone 10 mg tablet 10 mg PO Q12.TCU 07/08/24 Unknown History methylphenidate HCl 10 mg tablet 10 mg PO DAILY 07/08/24 Unknown History naloxone 4 mg/actuation nasal spray intranasal 07/08/24 Unknown History nystatin 100,000 unit/mL oral 4 ml PO 4X/DAY 07/08/24 Unknown History suspension pantoprazole 40 mg tablet,delayed 40 mg PO BID 07/08/24 Unknown History release pregabalin 25 mg capsule 25 mg PO BID 07/08/24 Unknown History sertraline 100 mg tablet 100 mg PO DAILY 07/08/24 Unknown History singlular .Route DAILY 07/08/24 Unknown History timolol maleate 0.5 % eye drops 1 drp ophthalmic (eye) BID 07/08/24 Unknown History tramadol 50 mg tablet 50 mg PO Q6H PRN PRN pain 07/08/24 Unknown History ceftriaxone 2 gram intravenous 1 g IV Q24H 07/22/24 Unknown History solution hydromorphone 8 mg tablet 8 mg PO Q4H PRN PRN pain 10/13/24 Unknown History montelukast 10 mg tablet 10 mg PO QHS 10/13/24 Unknown History ondansetron 8 mg disintegrating 8 mg PO Q8H PRN PRN nausea/vomiting 10/13/24 Unknown History tablet promethazine 25 mg tablet 25 mg PO Q6H PRN PRN nausea 10/13/24 Unknown History Allergy/AdvReac Type Severity Reaction Status Date / Time Penicillins (PCN) Allergy Hives Verified 10/12/24 22:57 pneumococcal vaccine Allergy arm red, Verified 10/12/24 22:57 warm, painful to touch adhesive tape AdvReac Rash Verified 10/12/24 22:57 vancomycin AdvReac RED MORGAN Verified 10/12/24 22:57 SYNDROME Surgical History H/O unilateral nephrectomy Ileostomy status Social History Smoking Status: Never smoker ROS ROS ED ROS Narrative Review of systems cannot be obtained as the patient is postictal EXAM Physical Exam Const Vital Signs: 10/12/24 22:51 10/12/24 22:52 10/12/24 23:07 Temperature 97 F L Temperature Source Axillary Pulse Rate 88 Respiratory Rate 22 H 22 H Blood Pressure 173/69 H Blood Pressure Mean 103 Pulse Ox 91 93 Oxygen Delivery Method Room Air Nasal Cannula Oxygen Flow Rate (L/min) 2 EtCo2 (Normal 35-45 , high quality CPR 10-20 & ROSC>/=40mmHg 50 10/12/24 23:38 10/12/24 23:51 10/13/24 00:00 Temperature 98.2 F Temperature Source Oral Pulse Rate 94 94 Respiratory Rate 16 16 Blood Pressure 139/76 H 150/75 H Blood Pressure Mean 97 100 Pulse Ox 95 99 Oxygen Delivery Method Room Air Room Air Oxygen Flow Rate (L/min) EtCo2 (Normal 35-45 , high quality CPR 10-20 & ROSC>/=40mmHg 40 10/13/24 01:00 10/13/24 01:21 10/13/24 02:00 Temperature 98.6 F Temperature Source Oral Pulse Rate 910 H 91 Respiratory Rate 16 21 H Blood Pressure 157/80 H 166/72 H Blood Pressure Mean 105 103 Pulse Ox 96 97 Oxygen Delivery Method Room Air Room Air Oxygen Flow Rate (L/min) EtCo2 (Normal 35-45 , high quality CPR 10-20 & ROSC>/=40mmHg 10/13/24 02:09 10/13/24 02:30 10/13/24 03:00 Temperature Temperature Source Pulse Rate 88 83 92 Respiratory Rate 16 12 23 H Blood Pressure 135/67 H 150/65 H Blood Pressure Mean 87 88 Pulse Ox 98 96 95 Oxygen Delivery Method Room Air Oxygen Flow Rate (L/min) 98.4 EtCo2 (Normal 35-45 , high quality CPR 10-20 & ROSC>/=40mmHg 10/13/24 04:00 10/13/24 05:00 10/13/24 06:00 Temperature Temperature Source Pulse Rate 87 85 85 Respiratory Rate 18 20 H 17 Blood Pressure 129/61 H 124/57 H 130/61 H Blood Pressure Mean 83 79 84 Pulse Ox 95 96 96 Oxygen Delivery Method Room Air Room Air Room Air Oxygen Flow Rate (L/min) EtCo2 (Normal 35-45 , high quality CPR 10-20 & ROSC>/=40mmHg 10/13/24 07:00 Temperature Temperature Source Pulse Rate 83 Respiratory Rate Blood Pressure 120/58 L Blood Pressure Mean 78 Pulse Ox 96 Oxygen Delivery Method Room Air Oxygen Flow Rate (L/min) EtCo2 (Normal 35-45 , high quality CPR 10-20 & ROSC>/=40mmHg Positive well nourished and well developed General Appearance ED: well developed; Negative for pallor HEENT HEENT Narrative: There is tongue biting noted consistent with seizure activity Otherwise head is normocephalic atraumatic No signs of infection noted in the posterior pharynx Eyes PERRL and EOMs intact bilaterally General Eye ED: Negative for scleral icterus Neck supple Neck Narrative: No nuchal rigidity or meningeal signs noted Chest Wall Chest Narrative: There is a catheter in place in the right chest wall without surrounding secondary skin changes to suggest infection Resp normal respiratory effort and clear to auscultation bilaterally Resp Narrative: Breath sounds are diminished throughout but overall clear to auscultation without signs of respiratory distress Cardio regular rate and regular rhythm Rate: other Other Details: Heart is regular rate and rhythm GI normal to inspection, nondistended, normoactive bowel sounds, non-tender, non- distended and no masses Auscultation: normoactive bowel sounds Palpation: soft Extremity normal to inspection Extremity Narrative: No asymmetric edema no pitting edema negative Homans' sign bilaterally No signs of long bone injury Neuro CN's II-XII intact bilaterally and no sensory deficits noted Neuro Narrative: Patient is obtunded/postictal upon arrival GCS of 14 However there is no obvious focal neurologic deficit Sensorium / Orientation: alert Motor Exam: strength 5/5 throughout Psych Psych Narrative: Patient has a depressed/flat affect upon arrival Mood & Affect: depressed Skin no rashes or lesions noted General Skin Exam: Negative for jaundice or pallor MDM MDM MDM Narrative Medical decision making narrative: Patient arrived to the ER hypertensive but overall stable vitals and protecting her airway. She was postictal with GCS of 14 cannot offer further history but as she is protecting her airway there is no need for emergent intubation or airway stabilization. With report for generalized seizures without return to baseline mental status there is concern this could be related to a brain mass or bleed versus electrolyte abnormality or potential infection. Secondary to this basic blood work was obtained with noncontrast head CT. Head CT revealed no acute bleed or mass. Blood work revealed no clinically significant Alycia abnormality or overt signs of infection. The patient returned to baseline mental status and had confirms she been taking her medications as directed going against opioid withdrawal benzodiazepine withdrawal and patient and family deny any alcohol use going against alcohol withdrawal seizure. As the patient has had multiple seizures tonight that are new onset in nature and did not return to baseline mental status between the seizure activity I did discuss the case with Dr. Sotomayor/neurology out of [facility]. He recommends that the patient be admitted to the hospital for further evaluation based on her past history and the fact she has had multiple new onset seizures. He also recommends she received a gram of Keppra. The patient was given the Keppra as requested. She had returned to her baseline mental status and did not have any further seizure activity while in the ER. We discussed potential transfer from ER to ER so she can be reevaluated and there system and decide what service would be appropriate for admission. However as the workup has been completed in the ER at our facility they do not feel is prudent to send her to ER to ER but rather recommend direct admission. Therefore the case was discussed with the hospitalist who agrees to accept the patient to their facility for further workup. Plan of care was discussed with patient and family and they are agreeable to it History & Record Review Discussion w/independent historian: EMS personnel, Patient and Family Lab Data Attestation: I reviewed the patient's lab results. Labs: Laboratory Results - last 24 hr 10/12/24 10/13/24 23:32 00:32 WBC 11.0 RBC 3.41 L Hgb 9.6 L Hct 30.7 L MCV 90.0 MCH 28.2 MCHC 31.3 L RDW Std Deviation 55.4 H RDW Coeff of Shawn 16.7 H Plt Count 809 H* MPV 11.8 Immature Gran % (Auto) 0.400 Neut % (Auto) 75.2 H Lymph % (Auto) 13.0 L Sterling % (Auto) 8.0 Eos % (Auto) 2.6 Baso % (Auto) 0.8 Absolute Neuts (auto) 8.3 H Absolute Lymphs (auto) 1.43 Nucleated RBC % 0 Diff Path Review May foll Platelet Estimate MKD INC Sodium 140 Potassium 4.5 Chloride 99 Carbon Dioxide 25.0 Anion Gap 16 H BUN 39 H Creatinine 1.86 H Estim Creat Clear Calc 27.74 Est GFR (MDRD) Af Amer 37 L Est GFR (MDRD) Non-Af 30 L BUN/Creatinine Ratio 21.0 H Glucose 113 H Calcium 9.5 Magnesium 2.0 Urine Color Yellow Urine Clarity Cloudy Urine pH 7.0 Ur Specific [place] 1.015 Urine Protein 500 H Urine Glucose (UA) Normal Urine Ketones Negative Urine Occult Blood 250 H Urine Nitrite Negative Urine Bilirubin Negative Urine Urobilinogen Normal Ur Leukocyte Esterase 500 H Urine RBC 25-50 SEEN Urine WBC 50-100 SEEN Ur Squamous Epith Cells 0 SEEN Urine Bacteria 1+ Urine Mucus 0 SEEN Urine Opiates Screen NEGATIVE Urine Methadone Screen POSITIVE H Ur Barbiturates Screen NEGATIVE Ur Phencyclidine Scrn NEGATIVE Ur Amphetamines Screen NEGATIVE MDMA (Ecstasy) Screen NEGATIVE U Benzodiazepines Scrn POSITIVE H Urine Cocaine Screen NEGATIVE U Cannabinoids Screen NEGATIVE Ur Drug Screen Comment Ethyl Alcohol < 3.0 Radiography Diagnostic Testing: Clinical Impression(s) from Imaging Studies Chest X-Ray 10/12/24 00:05 IMPRESSION: Right IJ catheter as above appears to terminate in the right atrium and appears kinked proximally. Electronically Signed: Brian Dodson MD at 1:11 EST Reading Location ID and State: [address] [place] [address] Tel , Service support , Brain CT 10/12/24 23:31 IMPRESSION: Normal unenhanced CT scan of the brain. Electronically Signed: Brian Dodson MD at 1:07 EST , Chest x-ray as interpreted by the emergency reveals no acute infiltrate pneumothorax or pleural effusion Management Discussion w/another healthcare provider: Customer Advocacy Manager Discharge Plan Triage Chief Complaint: Seizure ED Provider: Maxi Hubbard Dx/Rx/DC Orders Clinical Impression: Seizure-like activity, Radionecrosis, Short bowel syndrome Prescriptions: No Action cyanocobalamin (vitamin B-12) 1,000 MCG/ML solution 1,000 mcg IM Q30D Patient Comments: Vitamin of each month cholecalciferol (vitamin D3) 50,000 UNIT capsule 50,000 unit PO QWEEK Patient Comments: TAKES ON SATURDAY diphenoxylate-atropine 1 TABLET tablet 2 tab PO TIDCM Qty: 180 0RF octreotide acetate 100 MCG/ML solution 300 mcg IV QHS Patient Comments: INJECT IN WITH TPN loperamide 2 MG capsule 2 mg PO TIDCM PRN (Reason: loose stool) D5ns 2,000 - 3,000 ml IV BID amlodipine 10 MG tablet 10 mg PO DAILY Omeprazole [Prilosec] 40 MG capsule 40 mg PO DAILY ceftriaxone 2 gram recon soln 1 g IV Q24H hydromorphone 8 mg tablet 8 mg PO Q4H PRN PRN (Reason: pain) ondansetron 8 mg tablet,disintegrating 8 mg PO Q8H PRN PRN (Reason: nausea/vomiting) montelukast 10 mg tablet 10 mg PO QHS promethazine 25 mg tablet 25 mg PO Q6H PRN PRN (Reason: nausea) carvedilol 25 mg tablet 50 mg PO BID gabapentin 100 mg capsule 100 mg PO Q12.TCU lorazepam 0.5 mg tablet 0.5 mg PO Q6H PRN PRN (Reason: anxiety) hydralazine 50 mg tablet 100 mg PO BID hydromorphone 4 mg tablet See Rx Instructions PO .COMPLEX Rx Instructions: TAKE 1; 1/2 (ONE; ONE-HALF) TABLETS BY MOUTH EVERY 4 HOURS NEEDED FOR PAIN. MAY TAKE 2 TABLETS FOR ONE DOSE IN THE MORNING FOR SEVERE PAIN orally; nystatin 100,000 unit/mL suspension 4 ml PO 4X/DAY methylphenidate HCl 10 mg tablet 10 mg PO DAILY methadone 10 mg tablet 10 mg PO Q12.TCU sertraline 100 mg tablet 100 mg PO DAILY tramadol 50 mg tablet 50 mg PO Q6H PRN PRN (Reason: pain) Patient Comments: not taking pantoprazole 40 mg tablet,delayed release (DR/EC) 40 mg PO BID timolol maleate 0.5 % drops 1 drp ophthalmic (eye) BID pregabalin 25 mg capsule 25 mg PO BID naloxone 4 mg/actuation spray,non-aerosol INTRANASAL Patient Comments: ADMINISTER A SINGLE SPRAY IN ONE NOSTRIL UPON SIGNS OF OPIOID OVERDOSE. REPEAT AFTER 2 TO 3 MINUTES IN ALTERNATE NOSTRIL UNTIL MEDICAL ASSISTANCE IS AVAILABLE singlular 10 mg .Route DAILY Primary Care Provider: Santo Ramsey Referrals: Santo Ramsey MD [Primary Care Provider] - Print Language: Kazakh Disposition Disposition: Acute Care Hospital Discharge Location: [facility]
--- NOTE | 2024-10-13 08:38 | CM.ED ---
Social work Reason for referral: verification of AD Referral source: case find This SW recognized patient's advance directives needed verification. This SW went to enter patient's room and noticed patient was curled up in bed, sleeping, and room lights were off. No family was present. SW to attempt again later if possible due to patient's transfer to another facility. Nahomy Vizcarra, SALES MANAGER, MACHINIST JOB SETTER
--- NOTE | 2024-10-13 10:24 | ED.RN ---
CALLED [facility] TRANSFER LINE, THEY ARE STILL FULL AT THIS TIME. NO BED UPDATE. [facility] MIGHT HAVE DCS THIS AFTERNOON SO WITH ADMIT PATIENT TO OUR HOSPITAL IN THE MEANTIME.
[2024-10-13] MEDS: 0.9% Normal Saline (1000mL) 1,000 ML 75 ML IV (12:41)
--- NOTE | 2024-10-13 12:49 | CON.PCM.NE_ITS ---
Assessment and Plan: Neuro Assessment/Plan JOSE MANUEL DOW is a 49 F with a past medical history of colon cancer and brain cancer (unclear if primary or metastatic) s/p gamma knife resection with concern for recurrence vs radiation necrosis s/p HBO therapy, with, being evaluated by Teleneurology for new onset seizures in setting of new mass with vasogenic edema in the L occipital (the site of prior mass and gamma knife). Concern for tumor recurrence vs worsening radiation necrosis vs CVT. Discussed with patient and she is on wait list for [facility], would prefer to defer MRI imaging to [facility] given there is new mass on the CT. Plan: - please provide another 1000mg Keppra fro a total 2000mg load of Keppra - continue Keppra 750mg BID maintenance tonight - CT venogram of head - if she has another seizure, please let Teleneurology know immediately, repeat stat CTH. - do not provide steroids unles she has another seizure (neurology to dose steroids) I personally attended this patient and spent a total time of 45minutes evaluating this patient including clinical assessment, review of chart, medical history imaging, and determining appropriate treatment and workup. HPI Consult Data Date of Consult: 10/13/24 HPI Narrative HPI Narrative: JOSE MANUEL DOW, is a 49 F was brought to ED by EMS for seizure episode. As per the EMS report, patient was looking up while feeding and she started seizing for about 2 to 3 minutes 5 mg of Versed was given intranasally. EMS vitals shows BP high at 192/86, respiratory rate 30 to 32/min, ETCO2 of 42-44, heart rate 97 210/min. GCS Was Initially 12. After discussion with the ED physician, patient had 3 more seizures in the ED that were short, without return to their baseline mental status. Her body posture was stiff, contracted and did not respond. Most likely it was tonic- clonic seizure generalized seizure, new onset as patient did not have prior history of seizures/epilepsy. ED physician discussed with the Dr. Murray neurologist Dr. Candelaria Was not patient was excepted there. Keppra 1 g IV was given as per neurologist recommendation. Patient did not had bed open for more than 6 hours therefore patient admitted Neurologic History: Pt does not remember any of the events, never had a seizure before. Pt endorses headache now, but no prior headache. Pt only remembers yelling at her kids but that is it. It is a blank until she is in the hospital. Denies numbness or tingling, no weakness. Bit her tongue on both sides. Had a brain cancer in 2020, has had colon cancer in 2003. Had gamma knife twice, was put on Keppra initially but never had a seizure. Last time she had imaging done was 2-3 months ago. On this last MRI, there was damage possibly from the radiation and was HBO - last HBO treatment was 10/02. Follows at [facility] for her metastatic disease and colon cancer. Last time she was on Keppra was 2020. Has baseline spots in her vision from her tumor. No increased spots in her vision. REPLACED BY [facility] Medical History On total parenteral nutrition (TPN) History of colon cancer Short bowel syndrome Rectal tumor Hx of brain cancer Radionecrosis SHAD (acute kidney injury) Hydronephrosis of left kidney Hydroureter on left Home Medications ?Medication ?Instructions ?Recorded ?Last Taken ?Type cholecalciferol (vitamin D3) 1,250 50,000 unit PO QWEEK 03/06/16 08/27/16 History mcg (50,000 unit) capsule cyanocobalamin (vitamin B-12) 1,000 mcg IM Q30D 03/06/16 03/05/16 History 1,000 mcg/mL injection solution diphenoxylate-atropine 2.5 2 tab PO TIDCM ##180 03/09/16 Unknown Rx mg-0.025 mg tablet D5ns 2,000 - 3,000 ml IV BID 06/19/16 Unknown History loperamide 2 mg capsule 2 mg PO TIDCM PRN loose stool 06/19/16 Unknown History octreotide acetate 100 mcg/mL 300 mcg IV QHS 06/19/16 Unknown History injection solution Omeprazole [Prilosec] 40 mg PO DAILY 09/03/16 Unknown History amlodipine 10 mg tablet 10 mg PO DAILY blood press 09/03/16 Unknown History carvedilol 25 mg tablet 50 mg PO BID 07/08/24 Unknown History hydralazine 50 mg tablet 100 mg PO BID 07/08/24 Unknown History hydromorphone 4 mg tablet See Rx Instructions PO .COMPLEX 07/08/24 Unknown History lorazepam 0.5 mg tablet 0.5 mg PO Q6H PRN PRN anxiety 07/08/24 Unknown History methadone 10 mg tablet 10 mg PO Q12.TCU 07/08/24 Unknown History methylphenidate HCl 10 mg tablet 10 mg PO DAILY 07/08/24 Unknown History naloxone 4 mg/actuation nasal spray intranasal 07/08/24 Unknown History nystatin 100,000 unit/mL oral 4 ml PO 4X/DAY 07/08/24 Unknown History suspension pantoprazole 40 mg tablet,delayed 40 mg PO BID 07/08/24 Unknown History release pregabalin 25 mg capsule 25 mg PO BID 07/08/24 Unknown History sertraline 100 mg tablet 100 mg PO DAILY 07/08/24 Unknown History singlular .Route DAILY 07/08/24 Unknown History timolol maleate 0.5 % eye drops 1 drp ophthalmic (eye) BID 07/08/24 Unknown History ceftriaxone 2 gram intravenous 1 g IV Q24H infected hip 07/22/24 Unknown History solution hydromorphone 8 mg tablet 8 mg PO Q4H PRN PRN pain 10/13/24 Unknown History montelukast 10 mg tablet 10 mg PO QHS 10/13/24 Unknown History ondansetron 8 mg disintegrating 8 mg PO Q8H PRN PRN nausea/vomiting 10/13/24 Unknown History tablet promethazine 25 mg tablet 25 mg PO Q6H PRN PRN nausea 10/13/24 Unknown History Allergy/AdvReac Type Severity Reaction Status Date / Time Penicillins (PCN) Allergy Hives Verified 10/12/24 22:57 pneumococcal vaccine Allergy arm red, Verified 10/12/24 22:57 warm, painful to touch adhesive tape AdvReac Rash Verified 10/12/24 22:57 vancomycin AdvReac RED MORGAN Verified 10/12/24 22:57 SYNDROME Surgical History H/O unilateral nephrectomy Ileostomy status Social History Smoking Status: Never smoker Vital Signs Vital Signs Vital Signs: 10/12/24 22:51 10/12/24 22:52 10/12/24 23:07 Temperature 97 F L Temperature Source Axillary Pulse Rate 88 Respiratory Rate 22 H 22 H Blood Pressure 173/69 H Blood Pressure Mean 103 Blood Pressure Source Blood Pressure Position Blood Pressure Location Pulse Ox 91 93 Oxygen Delivery Method Room Air Nasal Cannula Oxygen Flow Rate (L/min) 2 EtCo2 (Normal 35-45 , high quality CPR 10-20 & ROSC>/=40mmHg 50 10/12/24 23:38 10/12/24 23:51 10/13/24 00:00 Temperature 98.2 F Temperature Source Oral Pulse Rate 94 94 Respiratory Rate 16 16 Blood Pressure 139/76 H 150/75 H Blood Pressure Mean 97 100 Blood Pressure Source Blood Pressure Position Blood Pressure Location Pulse Ox 95 99 Oxygen Delivery Method Room Air Room Air Oxygen Flow Rate (L/min) EtCo2 (Normal 35-45 , high quality CPR 10-20 & ROSC>/=40mmHg 40 10/13/24 01:00 10/13/24 01:21 10/13/24 02:00 Temperature 98.6 F Temperature Source Oral Pulse Rate 910 H 91 Respiratory Rate 16 21 H Blood Pressure 157/80 H 166/72 H Blood Pressure Mean 105 103 Blood Pressure Source Blood Pressure Position Blood Pressure Location Pulse Ox 96 97 Oxygen Delivery Method Room Air Room Air Oxygen Flow Rate (L/min) EtCo2 (Normal 35-45 , high quality CPR 10-20 & ROSC>/=40mmHg 10/13/24 02:09 10/13/24 02:30 10/13/24 03:00 Temperature Temperature Source Pulse Rate 88 83 92 Respiratory Rate 16 12 23 H Blood Pressure 135/67 H 150/65 H Blood Pressure Mean 87 88 Blood Pressure Source Blood Pressure Position Blood Pressure Location Pulse Ox 98 96 95 Oxygen Delivery Method Room Air Oxygen Flow Rate (L/min) 98.4 EtCo2 (Normal 35-45 , high quality CPR 10-20 & ROSC>/=40mmHg 10/13/24 04:00 10/13/24 05:00 10/13/24 06:00 Temperature Temperature Source Pulse Rate 87 85 85 Respiratory Rate 18 20 H 17 Blood Pressure 129/61 H 124/57 H 130/61 H Blood Pressure Mean 83 79 84 Blood Pressure Source Blood Pressure Position Blood Pressure Location Pulse Ox 95 96 96 Oxygen Delivery Method Room Air Room Air Room Air Oxygen Flow Rate (L/min) EtCo2 (Normal 35-45 , high quality CPR 10-20 & ROSC>/=40mmHg 10/13/24 07:00 10/13/24 08:00 10/13/24 09:00 Temperature Temperature Source Pulse Rate 83 81 86 Respiratory Rate Blood Pressure 120/58 L 126/61 H 111/60 Blood Pressure Mean 78 82 77 Blood Pressure Source Blood Pressure Position Blood Pressure Location Pulse Ox 96 96 98 Oxygen Delivery Method Room Air Room Air Room Air Oxygen Flow Rate (L/min) EtCo2 (Normal 35-45 , high quality CPR 10-20 & ROSC>/=40mmHg 10/13/24 10:00 10/13/24 11:00 10/13/24 11:21 Temperature 98.9 F Temperature Source Pulse Rate 84 86 84 Respiratory Rate 19 H Blood Pressure 119/64 112/57 L 119/64 Blood Pressure Mean 82 75 82 Blood Pressure Source Blood Pressure Position Blood Pressure Location Pulse Ox 98 98 98 Oxygen Delivery Method Room Air Oxygen Flow Rate (L/min) EtCo2 (Normal 35-45 , high quality CPR 10-20 & ROSC>/=40mmHg 10/13/24 12:24 Temperature 97.8 F Temperature Source Temporal Pulse Rate 87 Respiratory Rate 18 Blood Pressure 134/67 H Blood Pressure Mean 89 Blood Pressure Source Monitor Blood Pressure Position Semi-Fowlers Blood Pressure Location Left Arm Pulse Ox 97 Oxygen Delivery Method Room Air Oxygen Flow Rate (L/min) EtCo2 (Normal 35-45 , high quality CPR 10-20 & ROSC>/=40mmHg Weight Weight: 44.996 kg Body Mass Index (BMI) 16.5 EEG Results Procedure Details EEG Procedure Details: JOSE MANUEL DOW is a 49 year old F with a past medical history of , who presents for evaluation of Electroencephalogram on DATE at TIME Physical Exam Narrative -? General: Laying comfortably in bed; in no acute distress. -? HENT: tongue bit b/l, Normal external appearance of ears and nose. Exophthalmos. -? Neck: Supple, no pain or tenderness -? CV:? No peripheral edema. -? Pulmonary:? Normal respiratory effort. -? Ext: No cyanosis, edema, or deformity -? Skin: No rash. Normal palpation of skin.? -? Musculoskeletal: full range of motion; no joint tenderness. Normal digits and nails by inspection. No clubbing. -? NEURO: -? Mental Status: The patient was alert and oriented to time, place, and person. Normal recent/remote memory, concentration, and general fund of knowledge. -? Language: speech is clear.? Naming, repetition, fluency, and comprehension intact. -? Cranial Nerves: PERRL 3 mm/brisk. EOMI, visual kern full, no facial asymmetry, facial sensation intact, hearing intact, tongue midline, no evidence of atrophy or fibrillations. -? Motor: normal bulk, tone, and strength throughout. No pronator drift or satelliting. Upper and lower extremities equal bilaterally. -? Detailed strength exam as performed by the nurse/RANDI and witnessed by the physician: l R L SA 5 5 EE EF WE WF Surgical Appliance Fitter 5 5 HF 5 5 KE KF DF PF -? Sensation- Intact to light touch bilaterally -? Coordination: No dysmetria on [id number], finger follow finger or [id number]. -? Gait- deferred Lab / Micro Data 10/12/24 23:32 10/12/24 23:32 Labs: Laboratory Results - last 24 hr 10/12/24 23:32: WBC 11.0, RBC 3.41 L, Hgb 9.6 L, Hct 30.7 L, MCV 90.0, MCH 28.2, MCHC 31.3 L, RDW Std Deviation 55.4 H, RDW Coeff of Shawn 16.7 H, Plt Count 809 H*, MPV 11.8, Immature Gran % (Auto) 0.400, Neut % (Auto) 75.2 H, Lymph % (Auto) 13.0 L, [place] % (Auto) 8.0, Eos % (Auto) 2.6, Baso % (Auto) 0.8, Absolute Neuts (auto) 8.3 H, Absolute Lymphs (auto) 1.43, Nucleated RBC % 0, Diff Path Review May foll, Platelet Estimate MKD INC, Sodium 140, Potassium 4.5, Chloride 99, Carbon Dioxide 25.0, Anion Gap 16 H, BUN 39 H, Creatinine 1.86 H, Estim Creat Clear Calc 27.74, Est GFR (MDRD) Af Amer 37 L, Est GFR (MDRD) Non-Af 30 L, B UN/Creatinine Ratio 21.0 H, Glucose 113 H, Calcium 9.5, Magnesium 2.0, Ethyl Alcohol < 3.0 10/13/24 00:32: Urine Color Yellow, Urine Clarity Cloudy, Urine pH 7.0, Ur Specific [place] 1.015, Urine Protein 500 H, Urine Glucose (UA) Normal, Urine Ketones Negative, Urine Occult Blood 250 H, Urine Nitrite Negative, Urine Bilirubin Negative, Urine Urobilinogen Normal, Ur Leukocyte Esterase 500 H, Urine RBC 25-50 SEEN, Urine WBC 50-100 SEEN, Ur Squamous Epith Cells 0 SEEN, Urine Bacteria 1+, Urine Mucus 0 SEEN, Urine Opiates Screen NEGATIVE, Urine Methadone Screen POSITIVE H, Ur Barbiturates Screen NEGATIVE, Ur Phencyclidine Scrn NEGATIVE, Ur Amphetamines Screen NEGATIVE, MDMA (Ecstasy) Screen NEGATIVE, U Benzodiazepines Scrn POSITIVE H, Urine Cocaine Screen NEGATIVE, U Cannabinoids Screen NEGATIVE, Ur Drug Screen Comment Imaging Radiology Impression Chest X-Ray 10/12/24 00:05 IMPRESSION: Right IJ catheter as above appears to terminate in the right atrium and appears kinked proximally. Electronically Signed: Brian Dodson MD at 1:11 EST Reading Location ID and State: [address] [place] [address] Tel , Service support , Brain CT 10/12/24 23:31 IMPRESSION: Normal unenhanced CT scan of the brain. Electronically Signed: Brian Dodson MD at 1:07 EST Reading Location ID and State: [facility] / [place] Tel , Service support , Active Medications Active Medications Active Medications: Current Medications Generic Name Dose Route Start Last Admin Trade Name Freq PRN Reason Stop Dose Admin Heparin Sodium (Beef Lung) 50 units 10/13/24 12:07 Heparin Pf Lock 10 Units/Ml 50 Units/5 Ml Syringe IV UD PRN Port-a-Cath (VAD)Heparin Flush Levetiracetam 500 mg/ Sodium 105 mls @ 420 mls/hr 10/13/24 22:00 Chloride IV Q12 CHICHO Sodium Chloride 100 mls @ 15 mls/hr 10/13/24 12:07 IV .[id number] PRN SALINE FLUSH Sodium Chloride 1,000 mls @ 75 mls/hr 10/13/24 12:15 10/13/24 12:41 IV 10/14/24 14:54 75 mls/hr .[id number] CHICHO Administration Protocol Sodium Chloride 10 - 40 ml 10/13/24 12:07 0.9 % Nacl (Sterile) Posiflush 10 Ml IV UD PRN Port access or dressing change Sodium Chloride 10 - 40 ml 10/13/24 12:07 0.9% Saline Lock 10 Ml Syringe IV UD PRN Port-a-Cath (VAD) Flush Sodium Chloride 10 - 40 ml 10/13/24 12:07 0.9% Saline Lock 10 Ml Syringe IV UD PRN SALINE FLUSH
--- NOTE | 2024-10-13 13:18 | PCM.HP.STD ---
HPI - General General Date of Admission: 10/13/24 Date of Service: 10/13/24 Chief Complaint: Successive seizure episodes total 4 number HPI Narrative megan MORALES 49 F was brought to ED by EMS for seizure episode. As per the EMS report, patient was looking up while feeding and she started seizing for about 2 to 3 minutes 5 mg of Versed was given intranasally. EMS vitals shows BP high at 192/86, respiratory rate 30 to 32/min, ETCO2 of 42-44, heart rate 97 210/min. GCS Was Initially 12. After discussion with the ED physician, patient had 3 more seizures in the ED that were short, without return to their baseline mental status. Her body posture was stiff, contracted and did not respond. Most likely it was tonic-clonic seizure generalized seizure, new onset as patient did not have prior history of seizures/epilepsy. ED physician discussed with the Dr. Murray neurologist Dr. Candelaria Was not patient was excepted there. Keppra 1 g IV was given as per neurologist recommendation. Patient did not had bed open for more than 6 hours therefore patient admitted [facility] Medical History On total parenteral nutrition (TPN) History of colon cancer Short bowel syndrome Rectal tumor Hx of brain cancer Radionecrosis SHAD (acute kidney injury) Hydronephrosis of left kidney Hydroureter on left Home Medications ?Medication ?Instructions ?Recorded ?Last Taken ?Type cholecalciferol (vitamin D3) 1,250 50,000 unit PO QWEEK 03/06/16 08/27/16 History mcg (50,000 unit) capsule cyanocobalamin (vitamin B-12) 1,000 mcg IM Q30D 03/06/16 03/05/16 History 1,000 mcg/mL injection solution diphenoxylate-atropine 2.5 2 tab PO TIDCM ##180 03/09/16 Unknown Rx mg-0.025 mg tablet D5ns 2,000 - 3,000 ml IV BID 06/19/16 Unknown History loperamide 2 mg capsule 2 mg PO TIDCM PRN loose stool 06/19/16 Unknown History octreotide acetate 100 mcg/mL 300 mcg IV QHS 06/19/16 Unknown History injection solution Omeprazole [Prilosec] 40 mg PO DAILY 09/03/16 Unknown History amlodipine 10 mg tablet 10 mg PO DAILY blood press 09/03/16 Unknown History carvedilol 25 mg tablet 50 mg PO BID 07/08/24 Unknown History hydralazine 50 mg tablet 100 mg PO BID 07/08/24 Unknown History hydromorphone 4 mg tablet See Rx Instructions PO .COMPLEX 07/08/24 Unknown History lorazepam 0.5 mg tablet 0.5 mg PO Q6H PRN PRN anxiety 07/08/24 Unknown History methadone 10 mg tablet 10 mg PO Q12.TCU 07/08/24 Unknown History methylphenidate HCl 10 mg tablet 10 mg PO DAILY 07/08/24 Unknown History naloxone 4 mg/actuation nasal spray intranasal 07/08/24 Unknown History nystatin 100,000 unit/mL oral 4 ml PO 4X/DAY 07/08/24 Unknown History suspension pantoprazole 40 mg tablet,delayed 40 mg PO BID 07/08/24 Unknown History release pregabalin 25 mg capsule 25 mg PO BID 07/08/24 Unknown History sertraline 100 mg tablet 100 mg PO DAILY 07/08/24 Unknown History singlular .Route DAILY 07/08/24 Unknown History timolol maleate 0.5 % eye drops 1 drp ophthalmic (eye) BID 07/08/24 Unknown History ceftriaxone 2 gram intravenous 1 g IV Q24H infected hip 07/22/24 Unknown History solution hydromorphone 8 mg tablet 8 mg PO Q4H PRN PRN pain 10/13/24 Unknown History montelukast 10 mg tablet 10 mg PO QHS 10/13/24 Unknown History ondansetron 8 mg disintegrating 8 mg PO Q8H PRN PRN nausea/vomiting 10/13/24 Unknown History tablet promethazine 25 mg tablet 25 mg PO Q6H PRN PRN nausea 10/13/24 Unknown History Allergy/AdvReac Type Severity Reaction Status Date / Time Penicillins (PCN) Allergy Hives Verified 10/12/24 22:57 pneumococcal vaccine Allergy arm red, Verified 10/12/24 22:57 warm, painful to touch adhesive tape AdvReac Rash Verified 10/12/24 22:57 vancomycin AdvReac RED MORGAN Verified 10/12/24 22:57 SYNDROME Surgical History H/O unilateral nephrectomy Ileostomy status Social History Smoking Status: Never smoker ROS ROS Narrative When I saw the patient she was awake on baseline. 14 system ROS collected from the patient Constitutional: Reports very fatigue and weakness. No fever. HEENT: Reports systems reviewed and no addt'l complaints, except as documented Respiratory/Chest: No acute shortness of breath or respiratory distress or wheezing. CVS: No chest pain pressure tightness Gastrointestinal: Denies coffee ground emesis, hematemesis or vomiting. Small bowel syndrome. On TPN. Ileostomy Genitourinary: Left nephrostomy tube. Had right nephrectomy. Musculoskeletal: Denies acute joint pain or limited range of motion. No acute injury Neurologic: Seizure. Altered mental status during the episode. Brief unresponsive skin: No ulcer. No rash Endocrinology: Reports systems reviewed and no addt'l complaints, except as documented Psychiatric: On hydromorphone, lorazepam, methadone prescription. Hematologic/Lymphatic: Reports systems reviewed and no addt'l complaints, except as documented Rest 14 ROS are negative except as mentioned in HPI Vital Signs Vital Signs Vital Signs: 10/12/24 22:51 10/12/24 22:52 10/12/24 23:07 Temperature 97 F L Temperature Source Axillary Pulse Rate 88 Respiratory Rate 22 H 22 H Blood Pressure 173/69 H Blood Pressure Mean 103 Blood Pressure Source Blood Pressure Position Blood Pressure Location Pulse Ox 91 93 Oxygen Delivery Method Room Air Nasal Cannula Oxygen Flow Rate (L/min) 2 EtCo2 (Normal 35-45 , high quality CPR 10-20 & ROSC>/=40mmHg 50 10/12/24 23:38 10/12/24 23:51 10/13/24 00:00 Temperature 98.2 F Temperature Source Oral Pulse Rate 94 94 Respiratory Rate 16 16 Blood Pressure 139/76 H 150/75 H Blood Pressure Mean 97 100 Blood Pressure Source Blood Pressure Position Blood Pressure Location Pulse Ox 95 99 Oxygen Delivery Method Room Air Room Air Oxygen Flow Rate (L/min) EtCo2 (Normal 35-45 , high quality CPR 10-20 & ROSC>/=40mmHg 40 10/13/24 01:00 10/13/24 01:21 10/13/24 02:00 Temperature 98.6 F Temperature Source Oral Pulse Rate 910 H 91 Respiratory Rate 16 21 H Blood Pressure 157/80 H 166/72 H Blood Pressure Mean 105 103 Blood Pressure Source Blood Pressure Position Blood Pressure Location Pulse Ox 96 97 Oxygen Delivery Method Room Air Room Air Oxygen Flow Rate (L/min) EtCo2 (Normal 35-45 , high quality CPR 10-20 & ROSC>/=40mmHg 10/13/24 02:09 10/13/24 02:30 10/13/24 03:00 Temperature Temperature Source Pulse Rate 88 83 92 Respiratory Rate 16 12 23 H Blood Pressure 135/67 H 150/65 H Blood Pressure Mean 87 88 Blood Pressure Source Blood Pressure Position Blood Pressure Location Pulse Ox 98 96 95 Oxygen Delivery Method Room Air Oxygen Flow Rate (L/min) 98.4 EtCo2 (Normal 35-45 , high quality CPR 10-20 & ROSC>/=40mmHg 10/13/24 04:00 10/13/24 05:00 10/13/24 06:00 Temperature Temperature Source Pulse Rate 87 85 85 Respiratory Rate 18 20 H 17 Blood Pressure 129/61 H 124/57 H 130/61 H Blood Pressure Mean 83 79 84 Blood Pressure Source Blood Pressure Position Blood Pressure Location Pulse Ox 95 96 96 Oxygen Delivery Method Room Air Room Air Room Air Oxygen Flow Rate (L/min) EtCo2 (Normal 35-45 , high quality CPR 10-20 & ROSC>/=40mmHg 10/13/24 07:00 10/13/24 08:00 10/13/24 09:00 Temperature Temperature Source Pulse Rate 83 81 86 Respiratory Rate Blood Pressure 120/58 L 126/61 H 111/60 Blood Pressure Mean 78 82 77 Blood Pressure Source Blood Pressure Position Blood Pressure Location Pulse Ox 96 96 98 Oxygen Delivery Method Room Air Room Air Room Air Oxygen Flow Rate (L/min) EtCo2 (Normal 35-45 , high quality CPR 10-20 & ROSC>/=40mmHg 10/13/24 10:00 10/13/24 11:00 10/13/24 11:21 Temperature 98.9 F Temperature Source Pulse Rate 84 86 84 Respiratory Rate 19 H Blood Pressure 119/64 112/57 L 119/64 Blood Pressure Mean 82 75 82 Blood Pressure Source Blood Pressure Position Blood Pressure Location Pulse Ox 98 98 98 Oxygen Delivery Method Room Air Oxygen Flow Rate (L/min) EtCo2 (Normal 35-45 , high quality CPR 10-20 & ROSC>/=40mmHg 10/13/24 12:24 Temperature 97.8 F Temperature Source Temporal Pulse Rate 87 Respiratory Rate 18 Blood Pressure 134/67 H Blood Pressure Mean 89 Blood Pressure Source Monitor Blood Pressure Position Semi-Fowlers Blood Pressure Location Left Arm Pulse Ox 97 Oxygen Delivery Method Room Air Oxygen Flow Rate (L/min) EtCo2 (Normal 35-45 , high quality CPR 10-20 & ROSC>/=40mmHg Weight Weight: 99 lb 3.2 oz Body Mass Index (BMI) 16.5 Physical Exam Narrative When I saw the patient, patient able to give history but of course not remember the seizure episode. Physical exam General: Alert, Oriented x3, Cooperative HEENT: Atraumatic, PERRLA, EOMI, Normocephalic Oral: Oral mucosa moist no Gingival or Mucosal Lesions/ Ulcerations Neck: Supple, No JVD, Negative Carotid Bruits Chest wall/Lungs: Left upper chest Mediport. Air entry equal in bilateral lung bases. No crepitation/rhonchi Cardiovascular: Sinus rhythm, Normal S1, Normal S2, No M/G/R Abdomen: Midline surgical incision. Total colectomy. Some ileum dissection. Bowel sounds very sluggish. Liquid stool in ileostomy bag. : Little urine output. Left nephrostomy tube. Status post right nephrectomy.No suprapubic tenderness. Extremities: No edema, Capillary Refill Less than 3 Seconds Skin: No rashes, No breakdown Musculoskeletal: Decreased muscle bulk of extremities. Muscle strength 4+/5 at major joints. No Tenderness to Palpation of Joints or Extremities Neurological: Cranial nerves II-XII grossly intact, DTR 2/4. No acute focal neurological deficit. Psych/Mental Status: Flat affect Results Lab / Micro Data 10/12/24 23:32 10/12/24 23:32 Labs: Laboratory Results - last 24 hr 10/12/24 23:32: WBC 11.0, RBC 3.41 L, Hgb 9.6 L, Hct 30.7 L, MCV 90.0, MCH 28.2, MCHC 31.3 L, RDW Std Deviation 55.4 H, RDW Coeff of Shawn 16.7 H, Plt Count 809 H*, MPV 11.8, Immature Gran % (Auto) 0.400, Neut % (Auto) 75.2 H, Lymph % (Auto) 13.0 L, [place] % (Auto) 8.0, Eos % (Auto) 2.6, Baso % (Auto) 0.8, Absolute Neuts (auto) 8.3 H, Absolute Lymphs (auto) 1.43, Nucleated RBC % 0, Diff Path Review February, Platelet Estimate MKD INC, Sodium 140, Potassium 4.5, Chloride 99, Carbon Dioxide 25.0, Anion Gap 16 H, BUN 39 H, Creatinine 1.86 H, Estim Creat Clear Calc 27.74, Est GFR (MDRD) Af Amer 37 L, Est GFR (MDRD) Non-Af 30 L, BUN/Creatinine Ratio 21.0 H, Glucose 113 H, Calcium 9.5, Magnesium 2.0, Ethyl Alcohol < 3.0 10/13/24 00:32: Urine Color Yellow, Urine Clarity Cloudy, Urine pH 7.0, Ur Specific [place] 1.015, Urine Protein 500 H, Urine Glucose (UA) Normal, Urine Ketones Negative, Urine Occult Blood 250 H, Urine Nitrite Negative, Urine Bilirubin Negative, Urine Urobilinogen Normal, Ur Leukocyte Esterase 500 H, Urine RBC 25-50 SEEN, Urine WBC 50-100 SEEN, Ur Squamous Epith Cells 0 SEEN, Urine Bacteria 1+, Urine Mucus 0 SEEN, Urine Opiates Screen NEGATIVE, Urine Methadone Screen POSITIVE H, Ur Barbiturates Screen NEGATIVE, Ur Phencyclidine Scrn NEGATIVE, Ur Amphetamines Screen NEGATIVE, MDMA (Ecstasy) Screen NEGATIVE, U Benzodiazepines Scrn POSITIVE H, Urine Cocaine Screen NEGATIVE, U Cannabinoids Screen NEGATIVE, Ur Drug Screen Comment Imaging Radiology Impression Chest X-Ray 10/12/24 00:05 IMPRESSION: Right IJ catheter as above appears to terminate in the right atrium and appears kinked proximally. Electronically Signed: Brian Dodson MD at 1:11 EST Reading Location ID and State: [facility] / [place] Tel , Service support , Brain CT 10/12/24 23:31 IMPRESSION: Normal unenhanced CT scan of the brain. 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 From the history it is not clear whether to be defined as status epilepticus or recurrent seizure without returning to baseline mental function 1. Multiple recurrent tonic-clonic or tonic generalized seizure: Patient is being admitted in PCU. Patient completed 1 g IV Keppra in ED. Started on Keppra 500 mg every 12 hourly. EEG ordered pending to bed availability for transfer to [facility]. Patient has a history of brain mets and had gamma knife radiation twice last one in 2020. She took 1 year of antiepileptic prophylaxis after diagnosis of brain mets/gamma knife surgery. [facility] consult ordered. 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 Patient is on TPN during night and 1 L normal saline during daytime through Mediport on the chest 3. Most likely suspected possible SHAD or worsening CKD stage IV: Patient last BUN/creatinine our system 35/1.07 in May 2020. Admitted with BUN/creatinine 39/1.86. Started on IV fluid normal saline 4. Left-sided hydronephrosis and hydroureter status post nephrostomy: Patient is stated she had right nephroureterectomy because of ureter injury during surgery. After that she had left hydronephrosis and hydroureter for which she had a stenting. She had nephrostomy tube since 2016. She was admitted in 2016 for UTI due to Enterococcus and had nephrostomy tube at that time and was transferred to CCU 5. Anemia of chronic disease: Last available H&H 11.0/35.7 in May 2020. Current H&H 9.6/30.7%. Platelet count high at 809,000. Monitor H&H. 6. DVT prophylaxis high risk with history of Melton syndrome and brain mets?Lovenox 30 mg subcu daily Living will/advanced directive/end of life care: Patient does have living will or advanced directive. Her is power of finance attorney for health after discussion of benefits/risks procedures involved with full code, DNR CC arrest and DNR CC, the patient opted for full code. Patient does want artificial life support including intubation, tube feed, ventilator and/chest compression, central venous catheter, vasopressor and DC shock if needed but does not want to prolong her life on machines/life support if no meaningful recovery Total time spent in [id number] encounter in discussion of advanced directive 17 minutes. Laboratory Results 10/12/24 23:32: WBC 11.0, RBC 3.41 L, Hgb 9.6 L, Hct 30.7 L, MCV 90.0, MCH 28.2, MCHC 31.3 L, RDW Std Deviation 55.4 H, RDW Coeff of Shawn 16.7 H, Plt Count 809 H*, MPV 11.8, Immature Gran % (Auto) 0.400, Neut % (Auto) 75.2 H, Lymph % (Auto) 13.0 L, Jasper % (Auto) 8.0, Eos % (Auto) 2.6, Baso % (Auto) 0.8, Absolute Neuts (auto) 8.3 H, Absolute Lymphs (auto) 1.43, Nucleated RBC % 0, Diff Path Review February, Platelet Estimate MKD INC, Sodium 140, Potassium 4.5, Chloride 99, Carbon Dioxide 25.0, Anion Gap 16 H, BUN 39 H, Creatinine 1.86 H, Estim Creat Clear Calc 27.74, Est GFR (MDRD) Af Amer 37 L, Est GFR (MDRD) Non-Af 30 L, BUN/Creatinine Ratio 21.0 H, Glucose 113 H, Calcium 9.5, Magnesium 2.0, Ethyl Alcohol < 3.0 10/13/24 00:32: Urine Color Yellow, Urine Clarity Cloudy, Urine pH 7.0, Ur Specific [place] 1.015, Urine Protein 500 H, Urine Glucose (UA) Normal, Urine Ketones Negative, Urine Occult Blood 250 H, Urine Nitrite Negative, Urine Bilirubin Negative, Urine Urobilinogen Normal, Ur Leukocyte Esterase 500 H, Urine RBC 25-50 SEEN, Urine WBC 50-100 SEEN, Ur Squamous Epith Cells 0 SEEN, Urine Bacteria 1+, Urine Mucus 0 SEEN, Urine Opiates Screen NEGATIVE, Urine Methadone Screen POSITIVE H, Ur Barbiturates Screen NEGATIVE, Ur Phencyclidine Scrn NEGATIVE, Ur Amphetamines Screen NEGATIVE, MDMA (Ecstasy) Screen NEGATIVE, U Benzodiazepines Scrn POSITIVE H, Urine Cocaine Screen NEGATIVE, U Cannabinoids Screen NEGATIVE, Ur Drug Screen Comment 10/13/24 13:32: Magnesium Pending Charges/Coding Visit Charges Inpatient E&M: 93497 Init Hosp L3 Procedures Hospitalists Procedures: 48803 Advncd Care Plan 30 Min
[2024-10-13 13:59] LABS: Magnesium 2.3 mg/dL (1.6-2.6)
[2024-10-13 14:00] LABS: Pathologist Review Reviewed
[2024-10-13] MEDS: Enoxaparin 30 MG/0.3 ML Syringe SC (14:44)
[2024-10-13] MEDS: Acetaminophen 325 MG Tablet 650 MG PO (14:48)
[2024-10-13] MEDS: levETIRAcetam IV 750 MG in 0.9% Normal Saline (100mL Bag) 100 ML 430 MG IV (21:38)
[2024-10-14] MEDS: 0.9% Normal Saline (1000mL) 1,000 ML 100 ML IV (00:51)
[2024-10-14] MEDS: HYDROmorphone 2 MG TABLET 6 MG PO (02:35)
[2024-10-14 02:43] VITALS: BP 128/63; PULSE 95; RESP 16; TEMP 36.8; O2SAT 95
[2024-10-14 03:55] VITALS: BMI 16.9
[2024-10-14 04:29] VITALS: PULSE 96
[2024-10-14 05:14] LABS: Absolute Lymphocyte Count 1.62 X10^3/uL (0.83-4.51); Absolute Neutrophil Count 6.2 X10^3/uL (2.0-7.7); Basophil# 0.09 X10^3/uL; Eosinophils% 3.2 % (0-5); Hematocrit 28.9 % (37-47); Hemoglobin 9.2 g/dL (12.0-15.0); Lymphocyte # 1.62 X10^3/ul (0.83-4.51); Lymphocyte % 17.5 % (19-41); Mean Corp Hgb Conc 31.8 g/dL (32-36); Mean Corpuscular Volume 88.1 fL (81-99); Mean Platelet Vol. 10.6 fl (6.2-12.0); Monocyte# 1.05 X10^3/uL; Monocyte% 11.3 % (0-10); NRBC Flagged by Analyzer 0 % (0-5); Neutrophil # 6.17 X10^3/uL (2.7-7.7); Neutrophil % 66.6 % (47-70); POSITIVE COUNT YES; Platelet Count 847 K/mm3 (150-450); RBC Distribution Width CV 16.3 % (11.6-14.6); Red Blood Count 3.28 M/mm3 (4.2-5.4); White Blood Count 9.3 K/mm3 (4.4-11.0)
[2024-10-14 05:19] LABS: Differential Indicated SCAN CRITERIA MET
[2024-10-14 05:58] LABS: Anion Gap 8 (5-15); BUN 46 mg/dL (7-18); BUN/Creat Ratio 14.4 RATIO (10-20); Calcium,Total 9.1 mg/dL (8.5-10.1); Chloride 98 mmol/L (98-107); Creatinine, Serum 3.19 mg/dL (0.55-1.02); EST Glomerular Filtration Rate 16 mL/min (>60); Est Glom Filt Rate - Afr Amer 20 mL/min (>60); Estimated Creatinine Clearance 15.18 ml/min; Glucose 115 mg/dL (74-106); Potassium 2.9 mmol/L (3.5-5.1); Sodium Level 135 mmol/L (136-145)
[2024-10-14 07:34] VITALS: BP 127/76; PULSE 90; RESP 18; TEMP 36.7; O2SAT 95
[2024-10-14 07:39] VITALS: PULSE 80
[2024-10-14 08:00] VITALS: PULSE 95
[2024-10-14] MEDS: 0.9% Saline Lock 10 ML Syringe IV (08:11)
--- NOTE | 2024-10-14 08:36 | DS.PCM_ITS ---
Providers Date of Admission: 10/13/24 Date of Discharge: 10/14/24 Primary Care Physician: Dr. Santo Ramsey MD Consultations 10/13/24 10:58 Neurology [Consult: Tele-Neurology] Routine Consulting Provider: [facility] Reason for Consult: 4 recurrent seizure episodes EMERGENT Consult: No MD Notified: Yes Date Notified: 10/13/24 Time Notified: 12:12 Method of Notification: Answering Service Comments:: H/o colon ca with brain mets Nursing Unit Staff Notify [facility] of Tele-Neurology Consult: Yes Reason For Visit: SEIZURE WITH METS TO BRAIN Diagnosis Discharge Diagnosis (1) Seizure, epileptic: Status: Acute Code(s): G40.909 - Epilepsy, unspecified, not intractable, without status epilepticus Plan Patient is a 49-year-old lady with history of Melton syndrome with brain mets presented with multiple seizures 1. Status epilepticus ? In a patient with brain mets from lung syndrome (colon cancer). Patient was loaded with Keppra arrangement were made for patient to be transferred to [facility] 2. Melton syndrome (colon cancer) with brain mets ? Patient had previously undergone colectomy with segmental small bowel resection with ileostomy. Nutrition is through TPN at night 3. Anemia ? Secondary to chronic disorder monitoring H&H and transfuse if patient becomes symptomatic or hemoglobin falls below 7 4. Hypokalemia ? Corrected for protocol 5. Thrombocytosis ? Reactive from patient underlying malignancy 6. Acute kidney injury superimposed on chronic kidney disease stage III ? Creatinine from 10/12/2024 was 1.86 creatinine at the time of discharge was 3.19. Patient has history of left-sided hydronephrosis/hydroureter with previous stent placement and nephrostomy tube plan is for patient to undergo nephrology evaluation once patient arrives at a tertiary care center 7. DVT prophylaxis ? On enoxaparin Medications at Discharge Home Medications cholecalciferol (vitamin D3) 1,250 mcg (50,000 unit) capsule 50,000 unit PO QWEEK 03/06/16 cyanocobalamin (vitamin B-12) 1,000 mcg/mL injection solution 1,000 mcg IM Q30D 03/06/16 diphenoxylate-atropine 2.5 mg-0.025 mg tablet 2 tab PO TIDCM ##180 03/09/16 D5ns 2,000 - 3,000 ml IV BID 06/19/16 loperamide 2 mg capsule 2 mg PO TIDCM PRN loose stool 06/19/16 octreotide acetate 100 mcg/mL injection solution 300 mcg IV QHS 06/19/16 Omeprazole [Prilosec] 40 mg PO DAILY 09/03/16 amlodipine 10 mg tablet 10 mg PO DAILY blood press 09/03/16 carvedilol 25 mg tablet 50 mg PO BID 07/08/24 hydralazine 50 mg tablet 100 mg PO BID 07/08/24 hydromorphone 4 mg tablet See Rx Instructions PO .COMPLEX 07/08/24 lorazepam 0.5 mg tablet 0.5 mg PO Q6H PRN PRN anxiety 07/08/24 methadone 10 mg tablet 10 mg PO Q12.TCU 07/08/24 methylphenidate HCl 10 mg tablet 10 mg PO DAILY 07/08/24 naloxone 4 mg/actuation nasal spray intranasal 07/08/24 nystatin 100,000 unit/mL oral suspension 4 ml PO 4X/DAY 07/08/24 pantoprazole 40 mg tablet,delayed release 40 mg PO BID 07/08/24 pregabalin 25 mg capsule 25 mg PO BID 07/08/24 sertraline 100 mg tablet 100 mg PO DAILY 07/08/24 singlular .Route DAILY 07/08/24 timolol maleate 0.5 % eye drops 1 drp ophthalmic (eye) BID 07/08/24 ceftriaxone 2 gram intravenous solution 1 g IV Q24H infected hip 07/22/24 hydromorphone 8 mg tablet 8 mg PO Q4H PRN PRN pain 10/13/24 montelukast 10 mg tablet 10 mg PO QHS 10/13/24 ondansetron 8 mg disintegrating tablet 8 mg PO Q8H PRN PRN nausea/vomiting 10/13/24 promethazine 25 mg tablet 25 mg PO Q6H PRN PRN nausea 10/13/24 Physical Exam Narrative GENERAL: Frail looking HEENT: Atraumatic; normocephalic EYES; Anicteric, Normal Conjunctiva NEURO: Awake; no lateralizing signs. SKIN: No Rash PSYCH; Flat affect Weight / BMI Weight Weight: 46.1 kg Body Mass Index (BMI) 16.9 ABG / Lab / Microbiology Data 10/14/24 04:58 10/14/24 04:58 Laboratory: Laboratory Results - last 24 hr 10/14/24 04:58: WBC 9.3, RBC 3.28 L, Hgb 9.2 L, Hct 28.9 L, MCV 88.1, MCH 28.0, MCHC 31.8 L, RDW Std Deviation 53.0 H, RDW Coeff of Shawn 16.3 H, Plt Count 847 H* , MPV 10.6, Immature Gran % (Auto) 0.400, Neut % (Auto) 66.6, Lymph % (Auto) 17.5 L, [place] % (Auto) 11.3 H, Eos % (Auto) 3.2, Baso % (Auto) 1.0, Absolute Neuts (auto) 6.2, Absolute Lymphs (auto) 1.62, Nucleated RBC % 0, Diff Path Review February foll, Sodium 135 L, Potassium 2.9 L, Chloride 98, Carbon Dioxide 29.0, Anion Gap 8, BUN 46 H, Creatinine 3.19 H, Estim Creat Clear Calc 15.18, E st GFR (MDRD) Af Amer 20 L, Est GFR (MDRD) Non-Af 16 L, BUN/Creatinine Ratio 14.4, Glucose 115 H, Calcium 9.1, TSH 1.160 Microbiology: Microbiology 10/13/24 00:32 Urine, Nephrostomy Urine Culture - Preliminary Presumptive C albicans D/C Instructions Call your doctor if you observe: Fever of 101 or Higher, Shortness of breath, Fainting spells and Chest pain DC O2, CPAP, BIPAP Needs Home O2 Discharge instructions: No Meaningful Use Info Meaningful Use Meaningful Use Diagnoses (Choose all that apply): None applicable Ischemic Stroke Statin Dosing Therapy Reference: STATIN DOSE THERAPY REFERENCE: * Patients > 75 years receive moderate or high dose statin therapy. * Patients 75 years or YOUNGER should receive HIGH intensity statin dose unless contraindicated. You will be required to document reason for non-treatment if statin daily dose does not meet guidelines. HIGH DOSE STATIN THERAPY DAILY Atorvastatin > than or = to 40 mg Rosuvastatin > than or = to 20 mg Amlodipine + Atorvastatin > than or = to 2.5/40 mg Ezetimibe + Simvastatin 10/80 mg Simvastatin 80mg Discharge Plan Admission Admit Date/Time: 10/13/24 10:53 Attending Provider: Storm Chi Primary Care Provider: Santo Ramsey Consulting Providers: Santos Chun; Missy Dominguez; Florence Mcclelland; Ara Clements; Mavis Nunes; Suhas Richardson; Ana Luisa Enriquez; Zeeshan Gillespie; Shon Ochoa; Kannan Baxter; Rosie Menendez; Damaso Torres; Vicky Carrington; Kelby Clements; Osbaldo Saha; Dewayne Dorsey; Lita Francis; Jorge Alberto Tabares; Yulissa Dubose; Dorian Vargas; Padma Jones; Nii Aponte; Guadalupe Adorno; NATHEN JIMENEZ; Rick Rubin; Christina Chen; Madhu Fagan Discharge Orders/Prescriptions Prescriptions: No Action cyanocobalamin (vitamin B-12) 1,000 MCG/ML solution 1,000 mcg IM Q30D Patient Comments: Vitamin of each month cholecalciferol (vitamin D3) 50,000 UNIT capsule 50,000 unit PO QWEEK Patient Comments: TAKES ON SATURDAY diphenoxylate-atropine 1 TABLET tablet 2 tab PO TIDCM Qty: 180 0RF octreotide acetate 100 MCG/ML solution 300 mcg IV QHS Patient Comments: INJECT IN WITH TPN loperamide 2 MG capsule 2 mg PO TIDCM PRN (Reason: loose stool) D5ns 2,000 - 3,000 ml IV BID amlodipine 10 MG tablet 10 mg PO DAILY Omeprazole [Prilosec] 40 MG capsule 40 mg PO DAILY ceftriaxone 2 gram recon soln 1 g IV Q24H Rx Instructions: pt states she only had 1 day left to take hydromorphone 8 mg tablet 8 mg PO Q4H PRN PRN (Reason: pain) ondansetron 8 mg tablet,disintegrating 8 mg PO Q8H PRN PRN (Reason: nausea/vomiting) montelukast 10 mg tablet 10 mg PO QHS promethazine 25 mg tablet 25 mg PO Q6H PRN PRN (Reason: nausea) carvedilol 25 mg tablet 50 mg PO BID lorazepam 0.5 mg tablet 0.5 mg PO Q6H PRN PRN (Reason: anxiety) hydralazine 50 mg tablet 100 mg PO BID hydromorphone 4 mg tablet See Rx Instructions PO .COMPLEX Rx Instructions: TAKE 1; 1/2 (ONE; ONE-HALF) TABLETS BY MOUTH EVERY 4 HOURS NEEDED FOR PAIN. MAY TAKE 2 TABLETS FOR ONE DOSE IN THE MORNING FOR SEVERE PAIN orally; nystatin 100,000 unit/mL suspension 4 ml PO 4X/DAY methylphenidate HCl 10 mg tablet 10 mg PO DAILY methadone 10 mg tablet 10 mg PO Q12.TCU sertraline 100 mg tablet 100 mg PO DAILY pantoprazole 40 mg tablet,delayed release (DR/EC) 40 mg PO BID timolol maleate 0.5 % drops 1 drp ophthalmic (eye) BID pregabalin 25 mg capsule 25 mg PO BID naloxone 4 mg/actuation spray,non-aerosol INTRANASAL Patient Comments: ADMINISTER A SINGLE SPRAY IN ONE NOSTRIL UPON SIGNS OF OPIOID OVERDOSE. REPEAT AFTER 2 TO 3 MINUTES IN ALTERNATE NOSTRIL UNTIL MEDICAL ASSISTANCE IS AVAILABLE singlular 10 mg .Route DAILY Referrals / Follow Up: Santo Ramsey MD [Primary Care Provider] - Disposition Disposition (needs filled in before D/C Order can be placed): Acute Care Hospital Charges/Coding Visit Charges Inpatient E&M: 81845 Disch Hosp
[2024-10-15 13:18] LABS: Pathologist Review Reviewed
== END 2024-10-14 08:39 | disposition short-term general hospital (02) | DRG 100 ==
LOC: ED 10-13 05:46 → PCU 10-13 11:08
PROVIDERS: Admitting Provider Internal Medicine; Emergency Provider Emergency Medicine; PCP Family Medicine; Visit Provider Internal Medicine
DX: G40.401 Other generalized epilepsy and epileptic syndromes, not intractable, with status epilepticus (principal); G93.6 Cerebral edema; C79.31 Secondary malignant neoplasm of brain; K90.829 Short bowel syndrome, unspecified; N18.4 Chronic kidney disease, stage 4 (severe); N17.9 Acute kidney failure, unspecified; N13.4 Hydroureter; N13.30 Unspecified hydronephrosis; D63.8 Anemia in other chronic diseases classified elsewhere; Z93.3 Colostomy status; E87.6 Hypokalemia; Z93.2 Ileostomy status; Z15.09 Genetic susceptibility to other malignant neoplasm; Z93.6 Other artificial openings of urinary tract status; Z79.891 Long term (current) use of opiate analgesic; Z79.899 Other long term (current) drug therapy; Z85.038 Personal history of other malignant neoplasm of large intestine
CPT/HCPCS: 36415; 70450; 71045; 80048; 80307; 81001; 82077; 83735; 84443; 85025; 87086; 87088; 93005; 99285; A4216

== ENCOUNTER → 2025-04-26 | Outpatient (CLI) | payer BC, SELFPAY ==
--- NOTE | 2025-04-26 12:25 | EKG12_ITS ---
Test Reason : COLON CX Blood Pressure : */* mmHG Vent. Rate : 73 BPM Atrial Rate : 73 BPM P-R Int : 166 ms QRS Dur : 96 ms QT Int : 378 ms P-R-T Axes : 68 31 60 degrees QTcB Int : 416 ms Normal sinus rhythm Minimal voltage criteria for LVH, may be normal variant Borderline ECG Confirmed by Garret Bellamy ([id number]), communications editor LAWRENCE KHAN ([id number]) on 04/27/2025 11:04:17 AM Referred By: Nicki Houston Confirmed By: Garret Bellamy
== END | disposition home or self-care (01) ==
LOC: PSN 12:23
PROVIDERS: PCP Family Medicine; Referring Provider Family Medicine; Visit Provider Family Medicine
DX: C18.9 Malignant neoplasm of colon, unspecified (principal); Z51.81 Encounter for therapeutic drug level monitoring; Z79.891 Long term (current) use of opiate analgesic
CPT/HCPCS: 93005

== ENCOUNTER 2025-05-13 00:30 | Inpatient (IN) | payer BC, MEDICARE, SELFPAY ==
[2025-05-13] VITALS (25 sets, daily range): BP systolic 132–193; BP diastolic 60–92; PULSE 76–100; RESP 10–23; TEMP 36.6–36.9; O2SAT 96–100; BMI 19.5; BMI 19.1
--- NOTE | 2025-05-13 01:01 | EDS_ITS ---
HPI History of Present Illness Chief Complaint: Hypoglycemia Informant: patient, spouse/S.O. and EMS Narrative Narrative: Patient is a 49-year-old female with history of stage IV colon cancer with retroperitoneal and brain metastasis, left sided nephrostomy tube (chronic) and ileostomy presenting with weakness and low blood sugar. Patient has been on Decadron for swelling in her brain and because of is not having high blood sugars. Her blood sugar was in the 400s and she was instructed to take 8 units of insulin. There is no improvement of her blood sugar so she took additional 1 unit. She then had episode of hypoglycemia and her blood sugar went down to the 30s and she became unresponsive. EMS was called. When EMS arrived her blood sugar was 42. She was able to take oral glucose and given glucose bolus. They state that the insulin is relatively new medication. She otherwise states she is been in her normal state of health however this is pretty poor at baseline. Denies any change in her nephrostomy output. States she did have a lot of sugar so she has had increased output from her ileostomy. No report of any recent fevers, nausea or vomiting. [facility] Medical History On total parenteral nutrition (TPN) History of colon cancer Short bowel syndrome Rectal tumor Hx of brain cancer Radionecrosis SHAD (acute kidney injury) Hydronephrosis of left kidney Hydroureter on left Home Medications ?Medication ?Instructions ?Recorded ?Last Taken ?Type cyanocobalamin (vitamin B-12) 1,000 mcg IM Q30D 03/05/16 History 1,000 mcg/mL injection solution D5ns 2,000 - 3,000 ml IV BID PRN 06/19/16 Unknown History dehydrated loperamide 2 mg capsule 2 mg PO TIDCM PRN loose stoo l 06/19/16 Unknown History octreotide acetate 100 mcg/mL 300 mcg IV QHS 06/19/16 Unknown History injection solution Omeprazole [Prilosec] 40 mg PO DAILY 09/03/16 Unkn own History amlodipine 10 mg tablet 10 mg PO DAILY blood press 1 11/03/15 Unknown History carvedilol 25 mg tablet 50 mg PO BID 07/08/24 Unknow n History hydralazine 50 mg tablet 100 mg PO TID 07/08/24 Unkno wn History hydromorphone 4 mg tablet See Rx Instructions PO .COMP BENNIE 07/08/24 Unknown History lorazepam 0.5 mg tablet 0.5 mg PO Q6H PRN PRN anxiet y 07/08/24 Unknown History methadone 10 mg tablet 10 mg PO Q12.TCU 07/08/24 Un known History naloxone 4 mg/actuation nasal spray 1 spray intranasal PRN opioid 07/08/24 Unknown History overdose nystatin 100,000 unit/mL oral 4 ml PO 4X/DAY 07/08/24 Unknown History suspension sertraline 100 mg tablet 100 mg PO DAILY 07/08/24 Unk nown History singlular .Route DAILY 07/08/24 Unknow n History timolol maleate 0.5 % eye drops 1 drp ophthalmic (eye) BID 07/08/24 Unknown History hydromorphone 8 mg tablet 8 mg PO Q4H PRN PRN pain Unknown History montelukast 10 mg tablet 10 mg PO QHS 10/13/24 Unknow n History ondansetron 8 mg disintegrating 8 mg PO Q8H PRN PRN na usea/vomiting 10/13/24 Unknown History tablet promethazine 25 mg tablet 25 mg PO Q6H PRN PRN nausea 10/13/24 Unknown History dexamethasone 2 mg tablet 2 mg PO DAILY 05/13/25 Unkno wn History famotidine 20 mg tablet 20 mg PO BID 05/13/25 Unknow n History levetiracetam 500 mg tablet 500 mg PO BID 05/13/25 Unk nown History Allergy/AdvReac Type Severity Reaction Status Date / Time Penicillins (PCN) Allergy Hives Verified 05/13/25 00:39 pneumococcal vaccine Allergy arm red, Verified 05/13/25 00:39 warm, painful to touch adhesive tape AdvReac Rash Verified 05/13/25 00:39 vancomycin AdvReac RED MORGAN Verified 05/13/25 00:39 SYNDROME Surgical History H/O unilateral nephrectomy Ileostomy status Social History Smoking Status: Never smoker ROS ROS ED Constitutional Constitutional ED: Denies chills or fever(s) Eyes Eyes: Denies change in vision Respiratory/Chest Respiratory/Chest: Denies cough Gastrointestinal Gastrointestinal: Reports other Details: Reports increased ileostomy output ; Denies abdominal pain or vomiting Integumentary Denies rash Neurologic Neurologic: Reports weakness Endocrine Endocrinology: Reports other Details: Episode of low blood sugar EXAM Physical Exam Const Vital Signs: 05/13/25 00:32 05/13/25 02:31 05/13/25 04:15 Temperature 97.9 F Temperature Source Axillary Pulse Rate 80 84 86 Respiratory Rate 13 18 18 Blood Pressure 164/92 H 189/88 H 182/60 H Blood Pressure Mean 116 121 100 Pulse Ox 100 96 Oxygen Delivery Method Room Air Room Air 05/13/25 06:17 05/13/25 06:34 Temperature 98.3 F Temperature Source Pulse Rate 84 100 Respiratory Rate 13 18 Blood Pressure 170/84 H 166/89 H Blood Pressure Mean 112 114 Pulse Ox 99 96 Oxygen Delivery Method Room Air Constitutional Narrative: Chronically ill-appearing, no acute distress HEENT Reports moist mucous membranes Eyes PERRL Chest Wall inspection of chest normal Resp normal respiratory effort and clear to auscultation bilaterally Cardio regular rate and regular rhythm GI GI Narrative: Mildly tender to palpation. Ileostomy in place that is full and slightly leaking. No surrounding erythema. Back/Spine no CVA tenderness Back/Spine Narrative: Left nephrostomy tube in place, no surrounding erythema from the tube. There is urine draining into the bag. Extremity normal to inspection Neuro oriented x3 Sensorium / Orientation: alert Motor Exam: general weakness Psych mental status grossly normal Skin no rashes or lesions noted and no wounds MDM MDM MDM Narrative Medical decision making narrative: Patient evaluated for episode of decreased responsiveness and hypoglycemia. Patient took additional insulin for hyperglycemia. Patient has recently been on Decadron for swelling associated with brain metastasis. Likely this has been why she has been having her elevated glucose. Differential includes hypoglycemia, DKA, electrolyte derangement, infection. Patient does have a mild leukocytosis of 13.2 but this could be reactive from her recent Decadron. She is mildly anemic with a hemoglobin 11.2 but this actually is better than what she was back in October. Her CMP shows chronic kidney disease with creatinine of 2.48 (mildly improved from October) and she does have significant hypokalemia with potassium of 2.6. Magnesium is normal. Patient is given IV and oral potassium supplements. Her anion gap is normal. She is mildly hyperglycemic with a glucose of 385 however her [id number] glucose is 113. Will continue to monitor however patient is taking p.o. at this time. Repeat blood sugar is downtrending in the emergency room. Blood sugar is down to 57. Patient is mentating appropriately and asymptomatic at this time. Will give additional dextrose bolus. Will monitor for another hour or 2. Her last dose of insulin was at 4 PM which is 12 hours from now. At this point the insulin should be out of her system. Repeat blood sugar is now 47 after additional bolus of D10. She is given additional bolus. Will be started on maintenance glucose of D5 half-normal saline with KCl. Will contact hospitalist for admission. Lab Data Labs: Laboratory Results - last 24 hr 05/13/25 05/13/25 05/13/25 01:03 01:50 02:30 WBC 13.2 H RBC 3.75 L Hgb 11.2 L Hct 33.3 L MCV 88.8 MCH 29.9 MCHC 33.6 RDW Std Deviation 55.4 H RDW Coeff of Shawn 17.2 H Plt Count 262 MPV 13.9 H Immature Gran % (Auto) 0.700 Neut % (Auto) 78.7 H Lymph % (Auto) 12.8 L Mitchell % (Auto) 7.3 Eos % (Auto) 0.3 Baso % (Auto) 0.2 Absolute Neuts (auto) 10.4 H Absolute Lymphs (auto) 1.68 Nucleated RBC % 0 Sodium 137 Potassium 2.6 L* Chloride 95 L Carbon Dioxide 26.8 Anion Gap 15 BUN 74 H Creatinine 2.48 H Estim Creat Clear Calc 22.62 L Est GFR (MDRD) Non-Af 23 L BUN/Creatinine Ratio 29.7 H Glucose 365 H Calcium 8.1 Magnesium 1.8 Total Bilirubin 0.22 AST 19 ALT 19 Alkaline Phosphatase 126 H Total Protein 5.6 L Albumin 3.0 L Globulin 2.7 Albumin/Globulin Ratio 1.1 Urine Color Yellow Urine Clarity Clear Urine pH 6.0 Ur Specific [place] 1.015 Urine Protein 500 H Urine Glucose (UA) 100 H Urine Ketones Negative Urine Occult Blood 10 H Urine Nitrite Negative Urine Bilirubin Negative Urine Urobilinogen Normal Ur Leukocyte Esterase 100 H Urine RBC 0-5 SEEN Urine WBC 10-25 SEEN Ur Squamous Epith Cells 0 SEEN Urine Bacteria 2+ Urine Mucus 0 SEEN POC Glucose 113 H 05/13/25 05/13/25 05/13/25 04:06 05:01 06:19 WBC RBC Hgb Hct MCV MCH MCHC RDW Std Deviation RDW Coeff of Shawn Plt Count MPV Immature Gran % (Auto) Neut % (Auto) Lymph % (Auto) Mitchell % (Auto) Eos % (Auto) Baso % (Auto) Absolute Neuts (auto) Absolute Lymphs (auto) Nucleated RBC % Sodium Potassium Chloride Carbon Dioxide Anion Gap BUN Creatinine Estim Creat Clear Calc Est GFR (MDRD) Non-Af BUN/Creatinine Ratio Glucose Calcium Magnesium Total Bilirubin AST ALT Alkaline Phosphatase Total Protein Albumin Globulin Albumin/Globulin Ratio Urine Color Urine Clarity Urine pH Ur Specific [place] Urine Protein Urine Glucose (UA) Urine Ketones Urine Occult Blood Urine Nitrite Urine Bilirubin Urine Urobilinogen Ur Leukocyte Esterase Urine RBC Urine WBC Ur Squamous Epith Cells Urine Bacteria Urine Mucus POC Glucose 57 L 154 H 46 L Discharge Plan Triage Chief Complaint: Hypoglycemia ED Provider: Yesenia Mills Dx/Rx/DC Orders Clinical Impression: Hypoglycemia, Short bowel syndrome, History of colon cancer, On total parenteral nutrition (TPN), Ileostomy status, H/O unilateral nephrectomy Prescriptions: No Action cyanocobalamin (vitamin B-12) 1,000 MCG/ML solution 1,000 mcg IM Q30D Patient Comments: Vitamin of each month octreotide acetate 100 MCG/ML solution 300 mcg IV QHS Patient Comments: INJECT IN WITH TPN loperamide 2 MG capsule 2 mg PO TIDCM PRN (Reason: loose stool) D5ns 2,000 - 3,000 ml IV BID PRN (Reason: dehydrated) amlodipine 10 MG tablet 10 mg PO DAILY Omeprazole [Prilosec] 40 MG capsule 40 mg PO DAILY hydromorphone 8 mg tablet 8 mg PO Q4H PRN PRN (Reason: pain) ondansetron 8 mg tablet,disintegrating 8 mg PO Q8H PRN PRN (Reason: nausea/vomiting) montelukast 10 mg tablet 10 mg PO QHS promethazine 25 mg tablet 25 mg PO Q6H PRN PRN (Reason: nausea) carvedilol 25 mg tablet 50 mg PO BID lorazepam 0.5 mg tablet 0.5 mg PO Q6H PRN PRN (Reason: anxiety) hydralazine 50 mg tablet 100 mg PO TID hydromorphone 4 mg tablet See Rx Instructions PO .COMPLEX Rx Instructions: TAKE 1; 1/2 (ONE; ONE-HALF) TABLETS BY MOUTH EVERY 4 HOURS NEEDED FOR PAIN. MAY TAKE 2 TABLETS FOR ONE DOSE IN THE MORNING FOR SEVERE PAIN orally; nystatin 100,000 unit/mL suspension 4 ml PO 4X/DAY methadone 10 mg tablet 10 mg PO Q12.TCU sertraline 100 mg tablet 100 mg PO DAILY timolol maleate 0.5 % drops 1 drp ophthalmic (eye) BID naloxone 4 mg/actuation spray,non-aerosol 1 spray INTRANASAL PRN (Reason: opioid overdose) Patient Comments: ADMINISTER A SINGLE SPRAY IN ONE NOSTRIL UPON SIGNS OF OPIOID OVERDOSE. REPEAT AFTER 2 TO 3 MINUTES IN ALTERNATE NOSTRIL UNTIL MEDICAL ASSISTANCE IS AVAILABLE singlular 10 mg .Route DAILY dexamethasone 2 mg tablet 2 mg PO DAILY levetiracetam 500 mg tablet 500 mg PO BID famotidine 20 mg tablet 20 mg PO BID Primary Care Provider: Santo Ramsey Referrals: Santo Ramsey MD [Primary Care Provider] - Print Language: Colombian Disposition Disposition: Acute Care Hospital [facility]
[2025-05-13 02:00] LABS: Hematocrit 33.3 % (37-47); Hemoglobin 11.2 g/dL (12.0-15.0); Immature Granulocytes Count 0.090 X10^3/uL (0.0-0.0); Mean Corp Hgb Conc 33.6 g/dL (32-36); Mean Corpuscular Volume 88.8 fL (81-99); Mean Platelet Vol. 13.9 fl (6.2-12.0); NRBC Flagged by Analyzer 0 % (0-5); Platelet Count 262 K/mm3 (150-450); RBC Distribution Width CV 17.2 % (11.6-14.6); RBC Distribution Width SD 55.4 fl (35.1-43.9); Red Blood Count 3.75 M/mm3 (4.2-5.4); White Blood Count 13.2 K/mm3 (4.4-11.0)
[2025-05-13 02:23] LABS: Magnesium 1.8 mg/dL (1.5-2.2)
[2025-05-13 02:31] LABS: AST(SGOT) 19 U/L (<=31); Alanine Aminotransfer ALT/SGPT 19 U/L (<=34); Albumin, Serum 3.0 g/dL (3.5-5.0); Alkaline Phosphatase 126 U/L (35-104); Anion Gap 15 (5-15); BUN 74 mg/dL (4-19); BUN/Creat Ratio 29.7 RATIO (10-20); Calcium,Total 8.1 mg/dL (7.6-11.0); Carbon Dioxide 26.8 mmol/L (21.0-32.0); Chloride 95 mmol/L (98-108); Estimated Creatinine Clearance 22.62 ml/min (50-250); Globulin 2.7 g/dL (2.2-4.2); Glucose 365 mg/dL (70-99); Potassium 2.6 mmol/L (3.3-5.1)
[2025-05-13 02:37] LABS: Mucous, Urine 0 SEEN /hpf (<or=2+); Squamous Epithelial Cells - UA 0 SEEN /hpf (5-10)
[2025-05-13 02:41] LABS: Color, Urine Yellow (Yellow); Glucose, Dipstick 100 mg/dl (Normal); Ketone-Dipstick Negative (Negative); Leukocyte Esterase-Dipstick 100 /ul (Negative); Nitrite-Dipstick Negative (Negative); Occult Blood-Urine 10 /ul (Negative); Protein-Dipstick 500 mg/dl (Negative); Specific Gravity, Urine 1.015 (1.002-1.030); Urine Bilirubin Dipstick Negative (Negative)
[2025-05-13] MEDS: Potassium Chloride Oral Soln 20 MEQ/15 ML UDC 40 MEQ PO (02:55)
[2025-05-13] MEDS: Potassium Chloride 20mEq/100mL 20 MEQ/100 ML IV.SOLN. 100 MEQ IV BOLUS (02:58)
[2025-05-13 03:09] LABS: Red Blood Cells-Urine 0-5 SEEN /hpf (0-5)
[2025-05-13] MEDS: KCL 20MEQ in D5.45NS 20 MEQ/1,000 ML IV.SOLN. 100 MEQ IV ×2 (07:31→17:01)
--- NOTE | 2025-05-13 07:36 | ED.RN ---
0640 pts blood sugar was 46 and pt was asking that her ilestomy be drained, made pt aware that her blood sugar is dangerously low and she needs the D10 to be started before her ostomy is drained. Pt did not seem to be happy about the delay. Apologized,but emphasized the low blood sugar needs to be treated. Pt did get get cleaned up afterward and he ostomy was emptied.
[2025-05-13] MEDS: Timolol 0.5% 5ML OPTH.BTL 1 DRP OPHTHALMIC ×2 (11:17→21:23)
[2025-05-13] MEDS: NYSTATIN 500,000 UNIT/5 ML UDC 400000 UNIT PO ×4 (11:17→21:20)
--- NOTE | 2025-05-13 12:23 | PCM.HP.STD ---
HPI - General General Date of Admission: 05/13/25 HPI Narrative JOSE MANUEL DOW, is a 49 F who presents with hypoglycemia. She has a history of stage IV colon cancer with retroperitoneal and brain metastases. She also has a left-sided nephrostomy tube and an ileostomy that is fairly high output. She is currently on Decadron for edema surrounding her brain metastases. Overnight she had blood sugars in the 400s and was 2 take 8 units of insulin however there was no improvement so she took an extra unit and then her blood sugars went down into the 30s and her report became unresponsive. She says it just happened in the past when she has been on insulin when she had taken steroids. EMS was called and she was brought to the hospital. In the ER they were unable to consistently maintain her blood sugars greater than 100 and she has been started on a D5 normal saline drip. She is also hypokalemic to 2.6 which was replaced and has creatinine of 2.48 which is consistent with an SHAD as her creatinine at baseline is about 1.4. Also of note she did have a UA with 100 leukocyte esterase as well as 2+ bacteria and 10-25 urine WBCs with negative nitrites. She does have a slight leukocytosis which could be related to her Decadron, a urine culture was ordered but will hold off of treatment as she does have a left nephrostomy tube and she can just be colonized. [facility] Medical History On total parenteral nutrition (TPN) History of colon cancer Short bowel syndrome Rectal tumor Hx of brain cancer Radionecrosis SHAD (acute kidney injury) Hydronephrosis of left kidney Hydroureter on left Home Medications ?Medication ?Instructions ?Recorded ?Last Taken ?Type cyanocobalamin (vitamin B-12) 1,000 mcg IM Q30D 03/06/16 03/05/16 History 1,000 mcg/mL injection solution D5ns 2,000 - 3,000 ml IV BID PRN 06/19/16 Unknown History dehydrated loperamide 2 mg capsule 2 mg PO TIDCM PRN loose stool 06/19/16 Unknown History octreotide acetate 100 mcg/mL 300 mcg IV QHS 06/19/16 Unknown History injection solution Omeprazole [Prilosec] 40 mg PO DAILY 09/03/16 Unknown History amlodipine 10 mg tablet 10 mg PO DAILY blood press 09/03/16 Unknown History carvedilol 25 mg tablet 50 mg PO BID 07/08/24 Unknown History hydralazine 50 mg tablet 100 mg PO TID 07/08/24 Unknown History hydromorphone 4 mg tablet See Rx Instructions PO .COMPLEX 07/08/24 Unknown History lorazepam 0.5 mg tablet 0.5 mg PO Q6H PRN PRN anxiety 07/08/24 Unknown History methadone 10 mg tablet 10 mg PO Q12.TCU 07/08/24 Unknown History naloxone 4 mg/actuation nasal spray 1 spray intranasal PRN opioid 07/08/24 Unknown History overdose nystatin 100,000 unit/mL oral 4 ml PO 4X/DAY 07/08/24 Unknown History suspension sertraline 100 mg tablet 100 mg PO DAILY 07/08/24 Unknown History singlular .Route DAILY 07/08/24 Unknown History timolol maleate 0.5 % eye drops 1 drp ophthalmic (eye) BID 07/08/24 Unknown History hydromorphone 8 mg tablet 8 mg PO Q4H PRN PRN pain 10/13/24 Unknown History montelukast 10 mg tablet 10 mg PO QHS 10/13/24 Unknown History ondansetron 8 mg disintegrating 8 mg PO Q8H PRN PRN nausea/vomiting 10/13/24 Unknown History tablet promethazine 25 mg tablet 25 mg PO Q6H PRN PRN nausea 10/13/24 Unknown History dexamethasone 2 mg tablet 2 mg PO DAILY 05/13/25 Unknown History famotidine 20 mg tablet 20 mg PO BID 05/13/25 Unknown History levetiracetam 500 mg tablet 500 mg PO BID 05/13/25 Unknown History Allergy/AdvReac Type Severity Reaction Status Date / Time Penicillins (PCN) Allergy Hives Verified 05/13/25 00:39 pneumococcal vaccine Allergy arm red, Verified 05/13/25 00:39 warm, painful to touch adhesive tape AdvReac Rash Verified 05/13/25 00:39 vancomycin AdvReac RED MORGAN Verified 05/13/25 00:39 SYNDROME Surgical History H/O unilateral nephrectomy Ileostomy status Social History Smoking Status: Never smoker ROS Constitutional Constitutional: Denies chills, fatigue, fever(s) or malaise Eyes Eyes: Denies blurry vision ENT HEENT: Denies headache(s) or nasal discharge Cardiovascular Cardiovascular: Denies chest pain, dyspnea on exertion or syncope Respiratory/Chest Respiratory/Chest: Denies cough, shortness of breath at rest or shortness of breath with exertion Gastrointestinal Gastrointestinal: Denies constipation, diarrhea, nausea or vomiting Genitourinary Genitourinary: Denies dysuria Neurologic Neurologic: Denies focal weakness, numbness or tremor(s) Psychiatric Psychiatric: Denies anxiety or depression Vital Signs Vital Signs Vital Signs: 05/13/25 00:32 05/13/25 02:31 05/13/25 04:15 Temperature 97.9 F Temperature Source Axillary Pulse Rate 80 84 86 Respiratory Rate 13 18 18 Blood Pressure 164/92 H 189/88 H 182/60 H Blood Pressure Mean 116 121 100 Blood Pressure Source Blood Pressure Position Blood Pressure Location Pulse Ox 100 96 Oxygen Delivery Method Room Air Room Air 05/13/25 04:46 05/13/25 05:02 05/13/25 05:15 Temperature Temperature Source Pulse Rate 76 84 79 Respiratory Rate 10 L 14 23 H Blood Pressure Blood Pressure Mean Blood Pressure Source Blood Pressure Position Blood Pressure Location Pulse Ox 100 99 Oxygen Delivery Method 05/13/25 05:30 05/13/25 05:45 05/13/25 06:00 Temperature Temperature Source Pulse Rate 79 83 83 Respiratory Rate 20 H 12 14 Blood Pressure Blood Pressure Mean Blood Pressure Source Blood Pressure Position Blood Pressure Location Pulse Ox 99 Oxygen Delivery Method 05/13/25 06:15 05/13/25 06:17 05/13/25 06:21 Temperature Temperature Source Pulse Rate 80 84 83 Respiratory Rate 15 13 16 Blood Pressure 170/84 H 170/84 H Blood Pressure Mean 112 107 Blood Pressure Source Blood Pressure Position Blood Pressure Location Pulse Ox 99 99 Oxygen Delivery Method Room Air 05/13/25 06:30 05/13/25 06:34 05/13/25 06:45 Temperature 98.3 F Temperature Source Pulse Rate 95 100 87 Respiratory Rate 16 18 21 H Blood Pressure 166/89 H 166/89 H Blood Pressure Mean 111 114 Blood Pressure Source Blood Pressure Position Blood Pressure Location Pulse Ox 96 Oxygen Delivery Method 05/13/25 06:46 05/13/25 07:00 05/13/25 07:15 Temperature Temperature Source Pulse Rate 78 80 Respiratory Rate 13 12 10 L Blood Pressure 192/83 H 193/80 H 173/86 H Blood Pressure Mean 114 109 111 Blood Pressure Source Blood Pressure Position Blood Pressure Location Pulse Ox 100 100 100 Oxygen Delivery Method 05/13/25 07:30 05/13/25 07:45 05/13/25 08:00 Temperature Temperature Source Pulse Rate 83 Respiratory Rate 21 H Blood Pressure 159/82 H 133/75 H 132/74 H Blood Pressure Mean 105 93 92 Blood Pressure Source Blood Pressure Position Blood Pressure Location Pulse Ox 98 Oxygen Delivery Method 05/13/25 08:15 05/13/25 09:42 Temperature 98.5 F Temperature Source Temporal Pulse Rate 85 85 Respiratory Rate 15 17 Blood Pressure 138/71 H 175/87 H Blood Pressure Mean 91 116 Blood Pressure Source Monitor Blood Pressure Position Semi-Fowlers Blood Pressure Location Right Arm Pulse Ox 100 100 Oxygen Delivery Method Room Air Weight Weight: 114 lb 10.246 oz Body Mass Index (BMI) 19.1 Physical Exam Narrative General: Alert, Oriented x3, Cooperative, No apparent distress HEENT: Atraumatic, PERRLA, EOMI, Normocephalic Oral: Moist Mucosa Neck: Supple, No JVD Lungs: Diminished, Normal air movement, No rhonchi, No wheeze, No rales Cardiovascular: Regular rate, Regular Rhythm, Normal S1, Normal S2, No murmurs Abdomen: Soft, Non Tender, Non-Distended, No Hepato-splenomegaly, ileostomy, nephrostomy tube Extremities: No edema, Capillary Refill Less than 3 Seconds Skin: No rashes, No breakdown Musculoskeletal: No Tenderness to Palpation of Joints or Extremities Neurological: No focal neurological deficits, Motor Exam 5/5 strength throughout, Sensory exam intact to light touch and pain Psych/Mental Status: Normal Affect, Appropriate Results Lab / Micro Data 05/13/25 01:03 05/13/25 01:03 Labs: Laboratory Results - last 24 hr 05/13/25 01:03: WBC 13.2 H, RBC 3.75 L, Hgb 11.2 L, Hct 33.3 L, MCV 88.8, MCH 29.9, MCHC 33.6, RDW Std Deviation 55.4 H, RDW Coeff of Shawn 17.2 H, Plt Count 262, MPV 13.9 H, Immature Gran % (Auto) 0.700, Neut % (Auto) 78.7 H, Lymph % (Auto) 12.8 L, [place] % (Auto) 7.3, Eos % (Auto) 0.3, Baso % (Auto) 0.2, Absolute Neuts (auto) 10.4 H, Absolute Lymphs (auto) 1.68, Nucleated RBC % 0, Sodium 137, Potassium 2.6 L*, Chloride 95 L, Carbon Dioxide 26.8, Anion Gap 15, BUN 74 H, Creatinine 2.48 H, Estim Creat Clear Calc 22.62 L, Est GFR (MDRD) Non-Af 23 L, BUN/Creatinine Ratio 29.7 H, Glucose 365 H, Calcium 8.1, Magnesium 1.8, Total Bilirubin 0.22, AST 19, ALT 19, Alkaline Phosphatase 126 H, Total Protein 5.6 L, Albumin 3.0 L, Globulin 2.7, Albumin/Globulin Ratio 1.1 05/13/25 01:50: POC Glucose 113 H 05/13/25 02:30: Urine Color Yellow, Urine Clarity Clear, Urine pH 6.0, Ur Specific [place] 1.015, Urine Protein 500 H, Urine Glucose (UA) 100 H, Urine Ketones Negative, Urine Occult Blood 10 H, Urine Nitrite Negative, Urine Bilirubin Negative, Urine Urobilinogen Normal, Ur Leukocyte Esterase 100 H, Urine RBC 0-5 SEEN, Urine WBC 10-25 SEEN, Ur Squamous Epith Cells 0 SEEN, Urine Bacteria 2+, Urine Mucus 0 SEEN 05/13/25 04:06: POC Glucose 57 L 05/13/25 05:01: POC Glucose 154 H 05/13/25 06:19: POC Glucose 46 L 05/13/25 08:49: POC Glucose 96 05/13/25 09:28: POC Glucose 70 L Assessment & Plan Assessment/Plan (1) Hypoglycemia: PLAN: Plan 1. Hypoglycemia in the setting of steroid use for cerebral edema secondary to metastatic colon cancer with high output ileostomy and seizure disorder/hypokalemia/SHAD ? She was first diagnosed with colon cancer in 2003 and then had retroperitoneal disease found in 2005. ? She has an ileostomy which has been high output since she has had it in 2006. ? She was found to have brain metastases in 2020 and received 2 rounds of gamma knife. Currently she has another growth in the same spot that she began on-they are unsure if it is cancer versus necrosis but she was taking Decadron for edema and during her steroid courses over the years she developed hyperglycemia and so was typically placed on sliding scale ? She is oftentimes given insulin in her TPN ? She says that she has dropped low before because she is extremely sensitive to insulin ? Accu-Cheks every 4 hours and will continue with D5 normal saline, if blood sugars remain elevated can discontinue the D5 and just continue with normal saline ? Baseline creatinine is around 1.4, will continue with IV fluids as she is currently 2.48 ? Potassium was corrected in the ER, will continue to monitor. Magnesium is low at 1.5 so we will also replace ? Will continue with her home pain medications due to her chronic pain ? Will also continue with Keppra for seizure given her history of brain metastases with gamma knife and cerebral edema ? Continue with Imodium and octreotide for her high output ileostomy 2. Essential HTN ? Can resume her home blood pressure medications including hydralazine, Coreg, Norvasc ? Will monitor and make adjustments as necessary 3. GERD ? Stable ? Continue with PPI 4. Anxiety/depression ? Stable ? Continue with Zoloft and Ativan DVT: Lovenox 75 minutes was spent on direct patient care, including documentation as well as chart review and collaboration with colleagues Charges/Coding Visit Charges Inpatient E&M: 39572 Init Hosp L3
--- NOTE | 2025-05-13 12:34 | CASEMGMT ---
JENNIFER BOX Assessment Face to Face with patient for initial transition planning/care coordination assessment. JENNIFER BOX introduced self and role at [facility], pt voices understanding. Pt is A&Ox4 and is resting comfortably in bed and is calm. Care providers, pharmacy, and demographics verified. Admitting dx: Hypoglycemia and Dehydration with SHAD LACE Strata: 2 PCP: Santo Ramsey Specialists: Pt states that the main specialists she sees are: Luz (Oncology), Rylee ([facility] Neuro), TPN Specialist through [facility] Preferred Pharmacy: [facility] Insurance: REID TORIBIO Prescription Benefit: Yes LNOK: Kd (H) Living Arrangements: Pt lives with her in a single story home with 2 steps to enter ADLs/IADLs: Indep. 6-Click score is 24. Denies concerns Transportation: DME: [employer]. Pulse ox. CPAP @ HS with no additional oxygen. Functioning BGM with sufficient supplies including lancets, test strips, and EtOH swabs. Pt also has a chornic ileostomy and nephrostomy. Pt states that she is able to provide self care for these and denies concerns. Pt states that she is on TPN at home and gets supplies through [facility]. Pt states that an RN from [facility] comes to the home once per week for dressing changes and lab draws. Pt wishes to continue these services after DC. HHC/SNF: Denies SNF. See above regarding HH Pt?s goal: Home Plan: Home with MELINDA through [facility]. Pt states that she feels safe with this plan and denies any further questions, concerns, or needs at this time. Report given to MELLISA RODRIGUEZ CM. Annette Rodriguez RN, CM
--- NOTE | 2025-05-13 13:42 | CASEMGMT ---
Referral sent to [facility] via [facility] to confirm nursing visits and if able to resume upon pt dc from hospital.
[2025-05-13 13:59] LABS: Magnesium 1.5 mg/dL (1.5-2.2)
[2025-05-13] MEDS: Magnesium Sulfate 2 GM in Dextrose 5%-Water (100mL Bag) 100 ML IV (15:59)
[2025-05-13] MEDS: Octreotide 0.1 MG/ML ML 0.3 MG IV (21:21)
[2025-05-14] MEDS: KCL 20MEQ in D5.45NS 20 MEQ/1,000 ML IV.SOLN. 100 MEQ IV (02:29)
[2025-05-14 02:30] VITALS: BP 158/86; PULSE 83; RESP 16; TEMP 36.6; O2SAT 96
[2025-05-14 05:14] VITALS: BP 154/79; PULSE 83
[2025-05-14 07:01] LABS: Hematocrit 33.6 % (37-47); Hemoglobin 11.1 g/dL (12.0-15.0); Immature Granulocytes Count 0.100 X10^3/uL (0.0-0.0); Mean Corp Hgb Conc 33.0 g/dL (32-36); Mean Corpuscular Volume 91.6 fL (81-99); Mean Platelet Vol. 13.7 fl (6.2-12.0); NRBC Flagged by Analyzer 0 % (0-5); Platelet Count 249 K/mm3 (150-450); RBC Distribution Width CV 17.9 % (11.6-14.6); RBC Distribution Width SD 59.6 fl (35.1-43.9); Red Blood Count 3.67 M/mm3 (4.2-5.4); White Blood Count 11.2 K/mm3 (4.4-11.0)
[2025-05-14 07:21] LABS: Magnesium 2.3 mg/dL (1.5-2.2)
[2025-05-14 07:34] LABS: Anion Gap 11 (5-15); BUN 47 mg/dL (4-19); BUN/Creat Ratio 17.5 RATIO (10-20); Calcium,Total 7.9 mg/dL (7.6-11.0); Carbon Dioxide 27.5 mmol/L (21.0-32.0); Chloride 94 mmol/L (98-108); Estimated Creatinine Clearance 20.31 ml/min (50-250); Glucose 284 mg/dL (70-99); Potassium 4.4 mmol/L (3.3-5.1)
[2025-05-14 10:19] VITALS: BP 144/70; PULSE 94; RESP 16; TEMP 37.1; O2SAT 99
[2025-05-14] MEDS: NYSTATIN 500,000 UNIT/5 ML UDC 400000 UNIT PO ×2 (10:26→14:21)
[2025-05-14] MEDS: Timolol 0.5% 5ML OPTH.BTL 1 DRP OPHTHALMIC (10:27)
--- NOTE | 2025-05-14 11:36 | CASEMGMT ---
Addendum entered by Daisy Marin 05/14/25 12:40: RD [facility] at this time. Addendum entered by Daisy Marin 05/14/25 12:10: DC instructions sent to [facility] via [facility] at this time. Addendum entered by Daisy Marin 05/14/25 12:00: Sent labs, vitals, H&P to [facility] at this time. RD to complete note to be sent. Original Note: Received confirmation from [facility] that they visit pt weekly and the next visit is scheduled for Saturday at 3:30pm. RN CHARU made aware that pt missed her TPN delivery yesterday. Message sent to [facility] to confirm that this will be delivered and that pt is dc'ing today.
--- NOTE | 2025-05-14 12:06 | PCM.DC.SUM ---
Providers Date of Admission: 05/13/25 Date of Discharge: 05/14/25 Primary Care Physician: Dr. Santo Ramsey MD Reason For Visit: HYPOGLYCEMIA AND DEHYDRATION WITH SHAD Diagnosis Discharge Diagnosis (1) Hypoglycemia: Status: Acute Code(s): E16.2 - Hypoglycemia, unspecified Plan # Hypoglycemia after insulin administration # SHAD, resolved # Left-sided nephrostomy tube # Hyperglycemia secondary to Decadron # Stage IV metastatic colon cancer with ileostomy # History of seizures on Keppra # Depression with anxiety # Hypertension # GERD Medications at Discharge Home Medications D5ns 2,000 - 3,000 ml IV BID PRN dehydrated 06/19/16 loperamide 2 mg capsule 2 mg PO TIDCM PRN loose stool 06/19/16 octreotide acetate 100 mcg/mL injection solution 300 mcg IV QHS 06/19/16 Omeprazole [Prilosec] 40 mg PO DAILY 09/03/16 amlodipine 10 mg tablet 10 mg PO DAILY blood press 09/03/16 carvedilol 25 mg tablet 50 mg PO BID 07/08/24 hydralazine 50 mg tablet 100 mg PO TID 07/08/24 hydromorphone 4 mg tablet See Rx Instructions PO .COMPLEX 07/08/24 lorazepam 0.5 mg tablet 0.5 mg PO Q6H PRN PRN anxiety 07/08/24 methadone 10 mg tablet 10 mg PO Q12.TCU 07/08/24 naloxone 4 mg/actuation nasal spray 1 spray intranasal PRN opioid overdose 07/08/24 nystatin 100,000 unit/mL oral suspension 4 ml PO 4X/DAY 07/08/24 sertraline 100 mg tablet 100 mg PO DAILY 07/08/24 singlular .Route DAILY 07/08/24 timolol maleate 0.5 % eye drops 1 drp ophthalmic (eye) BID 07/08/24 hydromorphone 8 mg tablet 8 mg PO Q4H PRN PRN pain 10/13/24 montelukast 10 mg tablet 10 mg PO QHS 10/13/24 ondansetron 8 mg disintegrating tablet 8 mg PO Q8H PRN PRN nausea/vomiting 10/13/24 promethazine 25 mg tablet 25 mg PO Q6H PRN PRN nausea 10/13/24 famotidine 20 mg tablet 20 mg PO BID 05/13/25 levetiracetam 500 mg tablet 500 mg PO BID 05/13/25 Hospital Course Summary of Care Provided Minutes Spent on Discharge: 32 Hospital Course: Per HPI: JOSE MANUEL DOW, is a 49 F who presents with hypoglycemia. She has a history of stage IV colon cancer with retroperitoneal and brain metastases. She also has a left-sided nephrostomy tube and an ileostomy that is fairly high output. She is currently on Decadron for edema surrounding her brain metastases. Overnight she had blood sugars in the 400s and was 2 take 8 units of insulin however there was no improvement so she took an extra unit and then her blood sugars went down into the 30s and her report became unresponsive. She says it just happened in the past when she has been on insulin when she had taken steroids. EMS was called and she was brought to the hospital. In the ER they were unable to consistently maintain her blood sugars greater than 100 and she has been started on a D5 normal saline drip. She is also hypokalemic to 2.6 which was replaced and has creatinine of 2.48 which is consistent with an SHAD as her creatinine at baseline is about 1.4. Also of note she did have a UA with 100 leukocyte esterase as well as 2+ bacteria and 10-25 urine WBCs with negative nitrites. She does have a slight leukocytosis which could be related to her Decadron, a urine culture was ordered but will hold off of treatment as she does have a left nephrostomy tube and she can just be colonized. INTERVAL HISTORY: Patient's glucose improved and she was taken off of the dextrose drip, electrolytes also normalized. Patient became hyperglycemic but with normal bicarb and anion gap, patient will no longer be on Decadron as of tomorrow so presume glucose will be improved, presently more dangerous for patient to be low then to temporarily be high. Offered further admission for monitoring of glucose since she got Decadron again today versus home with follow-up with her physicians and patient said she felt better with no new or acute complaints and would like to be discharged home and follow-up outpatient which is reasonable. Discharge instructions as follows: - You have indicated that you are now done with your Decadron, please follow-up with your outpatient providers for further instruction/workup/management -Would recommend lab work (BMP) to check your electrolytes in 2 to 3 days through your primary care physician's office or outpatient provider office. Please call their office upon discharge to obtain order for lab work. -Please call your primary care provider's office upon discharge to schedule a hospital follow up within 1 week. -For any concerning signs or symptoms please call 911 or proceed to the nearest emergency department Physical Exam Narrative General: Alert, oriented, no apparent distress HEENT: Atraumatic, normocephalic Eyes: Anicteric, normal conjunctiva, extraocular movements grossly intact Neck: Supple Respiratory: Clear to auscultation bilaterally, normal respiratory effort Cardiovascular: Regular rate and rhythm GI: Soft, nontender, nondistended Extremities: No edema Musculoskeletal: Moving all extremities Neuro: No overt focal neurological deficits Skin: No rashes appreciated Psych: Cooperative Weight / BMI Weight Weight: 52 kg Body Mass Index (BMI) 19.1 ABG / Lab / Microbiology Data 05/14/25 06:18 05/14/25 06:18 Laboratory: Laboratory Results - last 24 hr 05/13/25 17:06: POC Glucose 292 H 05/13/25 19:59: POC Glucose 358 H 05/14/25 00:17: POC Glucose 227 H 05/14/25 05:13: POC Glucose 268 H 05/14/25 06:18: WBC 11.2 H, RBC 3.67 L, Hgb 11.1 L, Hct 33.6 L, MCV 91.6, MCH 30.2, MCHC 33.0, RDW Std Deviation 59.6 H, RDW Coeff of Shawn 17.9 H, Plt Count 249, MPV 13.7 H, Immature Gran % (Auto) 0.900, Neut % (Auto) 69.0, Lymph % (Auto) 21.3, [place] % (Auto) 6.2, Eos % (Auto) 2.4, Baso % (Auto) 0.2, Absolute Neuts (auto) 7.8 H, Absolute Lymphs (auto) 2.39, Nucleated RBC % 0, Sodium 133, Potassium 4.4, Chloride 94 L, Carbon Dioxide 27.5, Anion Gap 11, BUN 47 H, Creatinine 2.69 H, Estim Creat Clear Calc 20.31 L, Est GFR (MDRD) Non-Af 21 L, BUN/Creatinine Ratio 17.5, Glucose 284 H, Calcium 7.9, Phosphorus 3.1, Magnesium 2.3 H 05/14/25 10:40: POC Glucose 306 H 05/14/25 14:26: POC Glucose 361 H Microbiology: Microbiology 05/13/25 02:30 Urine, Nephrostomy Urine Culture - Preliminary Staphylococcus aureus GNR lactose reprint sorter D/C Instructions DC O2, CPAP, BIPAP Needs Home O2 Discharge instructions: No Meaningful Use Info Meaningful Use Meaningful Use Diagnoses (Choose all that apply): None applicable Discharge Plan Admission Admit Date/Time: 05/13/25 07:11 Primary Reason for Your Visit: Low blood sugar Attending Provider: Margarita Long Primary Care Provider: Santo Ramsey Consulting Providers: Amrit Crawford Instructions Patient Instructions: Hypoglycemia (Low Blood Sugar), ED Hypoglycemia, Nondiabetic Additional Instructions / Restrictions: - You have indicated that you are now done with your Decadron, please follow-up with your outpatient providers for further instruction/workup/management -Would recommend lab work (BMP) to check your electrolytes in 2 to 3 days through your primary care physician's office or outpatient provider office. Please call their office upon discharge to obtain order for lab work. -Please call your primary care provider's office upon discharge to schedule a hospital follow up within 1 week. -For any concerning signs or symptoms please call 911 or proceed to the nearest emergency department Discharge Orders/Prescriptions Prescriptions: Continued octreotide acetate 100 MCG/ML solution 300 mcg IV QHS Patient Comments: INJECT IN WITH TPN loperamide 2 MG capsule 2 mg PO TIDCM PRN (Reason: loose stool) D5ns 2,000 - 3,000 ml IV BID PRN (Reason: dehydrated) amlodipine 10 MG tablet 10 mg PO DAILY Omeprazole [Prilosec] 40 MG capsule 40 mg PO DAILY hydromorphone 8 mg tablet 8 mg PO Q4H PRN PRN (Reason: pain) ondansetron 8 mg tablet,disintegrating 8 mg PO Q8H PRN PRN (Reason: nausea/vomiting) montelukast 10 mg tablet 10 mg PO QHS promethazine 25 mg tablet 25 mg PO Q6H PRN PRN (Reason: nausea) carvedilol 25 mg tablet 50 mg PO BID lorazepam 0.5 mg tablet 0.5 mg PO Q6H PRN PRN (Reason: anxiety) hydralazine 50 mg tablet 100 mg PO TID hydromorphone 4 mg tablet See Rx Instructions PO .COMPLEX Rx Instructions: TAKE 1; 1/2 (ONE; ONE-HALF) TABLETS BY MOUTH EVERY 4 HOURS NEEDED FOR PAIN. MAY TAKE 2 TABLETS FOR ONE DOSE IN THE MORNING FOR SEVERE PAIN orally; nystatin 100,000 unit/mL suspension 4 ml PO 4X/DAY methadone 10 mg tablet 10 mg PO Q12.TCU sertraline 100 mg tablet 100 mg PO DAILY timolol maleate 0.5 % drops 1 drp ophthalmic (eye) BID naloxone 4 mg/actuation spray,non-aerosol 1 spray INTRANASAL PRN (Reason: opioid overdose) Patient Comments: ADMINISTER A SINGLE SPRAY IN ONE NOSTRIL UPON SIGNS OF OPIOID OVERDOSE. REPEAT AFTER 2 TO 3 MINUTES IN ALTERNATE NOSTRIL UNTIL MEDICAL ASSISTANCE IS AVAILABLE singlular 10 mg .Route DAILY levetiracetam 500 mg tablet 500 mg PO BID famotidine 20 mg tablet 20 mg PO BID Discontinued cyanocobalamin (vitamin B-12) 1,000 MCG/ML solution 1,000 mcg IM Q30D Patient Comments: Vitamin of each month dexamethasone 2 mg tablet 2 mg PO DAILY Referrals / Follow Up: Santo Ramsey MD [Primary Care Provider] - Within 1 Week Disposition Disposition (needs filled in before D/C Order can be placed): Home Health Service Charges/Coding Visit Charges Inpatient E&M: 79075 Disch Hosp >30min
[2025-05-14 14:15] VITALS: BP 156/83; PULSE 95; RESP 16; TEMP 36.6; O2SAT 98
[2025-05-14 14:20] VITALS: PULSE 95
== END 2025-05-14 16:03 | disposition home health service (06) | DRG 640 ==
LOC: ED 07:13 → MS3 07:46
PROVIDERS: Admitting Provider Family Medicine; Emergency Provider Emergency Medicine; PCP Family Medicine; Visit Provider Internal Medicine
DX: E16.2 Hypoglycemia, unspecified (principal); G93.6 Cerebral edema; C79.31 Secondary malignant neoplasm of brain; N17.9 Acute kidney failure, unspecified; C18.9 Malignant neoplasm of colon, unspecified; G40.409 Other generalized epilepsy and epileptic syndromes, not intractable, without status epilepticus; E87.6 Hypokalemia; K21.9 Gastro-esophageal reflux disease without esophagitis; N18.9 Chronic kidney disease, unspecified; I12.9 Hypertensive chronic kidney disease with stage 1 through stage 4 chronic kidney disease, or unspecified chronic kidney disease; F32.A Depression, unspecified; Z93.2 Ileostomy status; F41.9 Anxiety disorder, unspecified; Z79.899 Other long term (current) drug therapy
CPT/HCPCS: 36415; 80048; 80053; 81001; 82962; 83735; 84100; 85025; 87077; 87086; 87088; 87186; 97802; 99285; A4216; J2354

== ENCOUNTER 2025-07-20 16:46 | Emergency (ER) | payer BC, SELFPAY ==
[2025-07-20] VITALS (8 sets, daily range): BP systolic 136–181; BP diastolic 63–83; PULSE 82–97; RESP 13–16; TEMP 36.4–37; O2SAT 95–98; BMI 16.8
--- NOTE | 2025-07-20 17:11 | EX.ED.DYSGE1 ---
HPI History of Present Illness Chief Complaint: Abn Labs Informant: patient Narrative Narrative: 49-year-old female history of colon cancer with mets to her lymph nodes and brain. Prior history of gamma knife in 2020 and also recently in June. Recently was hospitalized [facility]. Needed 1 unit of blood at that time. She had outpatient labs done today was told her hemoglobin was 6.6 and to go to the nearest emergency department. She denies any rectal bleeding or gross hematuria. No bruising. She is on no blood thinners. She is currently on chemotherapy. Prior similar symptoms: Yes Recent Illness/Hospitalization: Yes [facility] Medical History On total parenteral nutrition (TPN) History of colon cancer Short bowel syndrome Rectal tumor Hx of brain cancer Radionecrosis SHAD (acute kidney injury) Hydronephrosis of left kidney Hydroureter on left Home Medications ?Medication ?Instructions ?Recorded ?Last Taken ?Type D5ns 2,000 - 3,000 ml IV BID PRN 06/19/16 07/20/25 History dehydrated loperamide 2 mg capsule 2 mg PO TIDCM PRN loose stool 06/19/16 07/14/25 History amlodipine 10 mg tablet 10 mg PO DAILY blood press 09/03/16 Unknown History carvedilol 25 mg tablet 50 mg PO BID BLOOD PRESSURE 07/08/24 07/20/25 History hydralazine 50 mg tablet 100 mg PO TID 07/08/24 Unknown History lorazepam 0.5 mg tablet 0.5 mg PO Q6H PRN anxiety 07/08/24 07/20/25 History methadone 10 mg tablet 10 mg PO TID PAIN 07/08/24 07/20/25 History naloxone 4 mg/actuation nasal spray 1 spray intranasal PRN opioid 07/08/24 Unknown History overdose nystatin 100,000 unit/mL oral 4 ml PO 4X/DAY 07/08/24 07/18/25 History suspension timolol maleate 0.5 % eye drops 1 drp ophthalmic (eye) BID 07/08/24 07/20/25 History hydromorphone 8 mg tablet 8 mg PO Q4H PRN pain 10/13/24 07/20/25 History montelukast 10 mg tablet 10 mg PO QHS 10/13/24 07/19/25 History ondansetron 8 mg disintegrating 8 mg PO Q8H PRN nausea/vomiting 10/13/24 07/19/25 History tablet promethazine 25 mg tablet 25 mg PO Q6H PRN nausea 10/13/24 Unknown History levetiracetam 500 mg tablet 500 mg PO BID SEIZURES 05/13/25 07/20/25 History albuterol sulfate 90 mcg/actuation 2 puff inhalation PRN SOB 07/20/25 07/19/25 History aerosol inhaler cyanocobalamin (vitamin B-12) 1,000 mcg IM QMONTH 07/20/25 Unknown History 1,000 mcg/mL injection solution diphenoxylate-atropine 2.5 2 tab PO 4X/DAY 07/20/25 07/19/25 History mg-0.025 mg tablet doxazosin 4 mg tablet 4 mg PO DAILY BLOOD PRESSURE 07/20/25 07/19/25 History ergocalciferol (vitamin D2) 1,250 1,250 mcg PO DAILY LOW VITAMIN D 07/20/25 07/20/25 History mcg (50,000 unit) capsule LEVELS hydrocortisone 2.5 % topical cream applic topical 07/20/25 Unknown History insulin aspart subcut 07/20/25 Unknown History (niacinamide)(U-100) 100 unit/mL(3 mL) subcutaneous pen (Fiasp FlexTouch U-100 Insulin) insulin glargine 100 unit/mL (3 15 unit subcut QHS 07/20/25 07/19/25 History mL) subcutaneous pen (Lantus Solostar U-100 Insulin) insulin regular human 100 unit/mL subcut 07/20/25 Unknown History (3 mL) subcutaneous pen (Novolin R FlexPen) isosorbide dinitrate 20 mg tablet 20 mg PO BID HEART 07/20/25 07/20/25 History lorazepam 1 mg tablet 1 mg PO Q6H PRN anxiety 07/20/25 07/19/25 History methocarbamol 500 mg tablet 500 mg PO Q6H PRN muscle spasm 07/20/25 Unknown History midazolam 5 mg/spray (0.1 mL) 1 spray intranasal PRN FOR SEIZURES 07/20/25 Unknown History nasal spray (Nayzilam) olanzapine 5 mg disintegrating 5 mg PO QHS 10/07/25 10/06/25 History tablet Allergy/AdvReac Type Severity Reaction Status Date / Time Penicillins (PCN) Allergy Hives Verified 07/20/25 16:48 pneumococcal vaccine Allergy arm red, Verified 07/20/25 16:48 warm, painful to touch adhesive tape AdvReac Rash Verified 07/20/25 16:48 vancomycin AdvReac RED MORGAN Verified 07/20/25 16:48 SYNDROME Surgical History H/O unilateral nephrectomy Ileostomy status Social History Smoking Status: Never smoker ROS ROS ED ROS Narrative Denies any nausea or vomiting. Denies any melena. No hematemesis. No bruising. No gross hematuria. Constitutional Constitutional ED: Denies chills or fever(s) Eyes Eyes: Denies blurry vision ENT ENT ED: Denies ear pain Cardiovascular Cardiovascular: Denies chest pain Respiratory/Chest Respiratory/Chest: Denies cough Gastrointestinal Gastrointestinal: Denies abdominal pain Genitourinary Genitourinary ED: Denies dysuria or hematuria Musculoskeletal Musculoskeletal: Denies arthralgias Integumentary Denies abscess Neurologic Neurologic: Denies headache(s) Psychiatric Psychiatric: Denies anxiety Endocrine Endocrinology: Denies cold intolerance Hematologic/Lymphatic Hematologic/Lymphatic: Reports none Allergic/Immunologic Allergic/Immunologic ED: Denies mouth swelling, tongue swelling or urticaria EXAM Physical Exam Narrative Exam Narrative: 49-year-old female sitting upright in bed. No acute distress. Vital signs stable afebrile. H EENT exam pupils round react light. Moist mucosa. Neck nontender no JVD. No lymphadenopathy. Lungs clear to auscultation bilaterally. Heart regular rhythm rate about 95 no murmur. Chest wall ribs nontender. Abdomen soft nontender. Back nontender. Moving all 4 extremities. Normal i&c technician strength. Normal dorsi plantarflexion. Nontender no edema. Neurologically she is awake alert. Answer questions following commands. Const Vital Signs: 07/20/25 16:47 07/20/25 17:53 Temperature 98.6 F Temperature Source Oral Pulse Rate 97 92 Respiratory Rate 16 14 Blood Pressure 176/77 H 136/63 H Blood Pressure Mean 110 87 Pulse Ox 98 96 Oxygen Delivery Method Room Air Room Air Positive well nourished and well developed; Negative for obese, cachectic, contractures or unkempt General Appearance ED: well developed; Negative for unkempt, cachectic, contractures or pallor Nutritional Appearance: Negative for cachectic or obese Eyes PERRL and EOMs intact bilaterally Neck no lymphadenopathy, supple and no JVD Chest Wall inspection of chest normal and palpation of chest normal Resp normal respiratory effort and clear to auscultation bilaterally GI normal to inspection, nondistended, normoactive bowel sounds, non-tender, non-distended and no masses Back/Spine no CVA tenderness Extremity normal to inspection General Extremety ED: Negative for edema or tenderness General Extremity: Negative for edema Neuro oriented x3 and CN's II-XII intact bilaterally Sensorium / Orientation: alert Motor Exam: strength 5/5 throughout Psych mental status grossly normal Appearance: Negative for unkempt Skin no rashes or lesions noted and no wounds General Skin Exam: Negative for jaundice or pallor Lesions: No lesion noted Rashes: No rashes noted Trauma: Negative for abrasion MDM MDM MDM Narrative Medical decision making narrative: 49-year-old female has colon cancer with mets to her lymph nodes and brain. Currently on chemotherapy was told she was anemic daily hemoglobin 6.6 on outpatient labs another facility. She will be typed and crossed and a CBC and chemistry will be obtained. I am assuming the lab is true if it checks out with our lab she will be admitted for transfusions. Repeat exam no significant change around 6:20 PM. Patient I discussed her test results. Of the hospitalist on page for admission. History & Record Review Discussion w/independent historian: Patient Additional record(s) reviewed:: Prior inpatient record, Prior outpatient record, Prior ED visit and Prior labs Lab Data Attestation: I reviewed the patient's lab results. Lab results narrative: CBC shows white count of 14.0. H&H is 6.8 and 21.9. Which is consistent with her outpatient lab hemoglobin 6.6. Platelets are 586. Electrolytes show a gap of 17. BUN and creatinine of 64 and 3.99 she has a history of chronic kidney disease. She has 1 kidney and that kidney has a nephrostomy tube in it. Glucose 154. Blood type B+. Labs: Laboratory Results - last 24 hr 07/20/25 17:15 WBC 14.0 H RBC 2.27 L Hgb 6.8 L Hct 21.9 L MCV 96.5 MCH 30.0 MCHC 31.1 L RDW Std Deviation 60.4 H RDW Coeff of Shawn 17.3 H Plt Count 586 H MPV 10.6 Immature Gran % (Auto) 1.600 H Neut % (Auto) 64.8 Lymph % (Auto) 18.3 L [place] % (Auto) 14.3 H Eos % (Auto) 0.6 Baso % (Auto) 0.4 Absolute Neuts (auto) 9.1 H Absolute Lymphs (auto) 2.55 Nucleated RBC % 0.2 Sodium 141 Potassium 3.5 Chloride 95 L Carbon Dioxide 29.5 Anion Gap 17 H BUN 64 H Creatinine 3.99 H Estim Creat Clear Calc 12.06 L Est GFR (MDRD) Non-Af 13 L BUN/Creatinine Ratio 16.1 Glucose 154 H Calcium 8.3 Blood Type B POSITIVE Antibody Screen NEGATIVE Crossmatch See Detail Discharge Plan Dx/Rx/DC Orders Clinical Impression: Anemia, Transfusion of blood during current hospitalisation, Colon cancer metastasized to brain, Chronic kidney disease Disposition Disposition: Acute Care [facility]
[2025-07-20 17:24] LABS: Differential Indicated SCAN CRITERIA MET; Hematocrit 21.9 % (37-47); Hemoglobin 6.8 g/dL (12.0-15.0); Immature Granulocytes Count 0.220 X10^3/uL (0.0-0.0); Mean Corp Hgb Conc 31.1 g/dL (32-36); Mean Corpuscular Volume 96.5 fL (81-99); Mean Platelet Vol. 10.6 fl (6.2-12.0); NRBC Flagged by Analyzer 0.2 % (0-5); POSITIVE DIFFERENTIAL YES; Platelet Count 586 K/mm3 (150-450); RBC Distribution Width CV 17.3 % (11.6-14.6); RBC Distribution Width SD 60.4 fl (35.1-43.9); Red Blood Count 2.27 M/mm3 (4.2-5.4); White Blood Count 14.0 K/mm3 (4.4-11.0)
[2025-07-20 18:08] LABS: Anion Gap 17 (5-15); BUN 64 mg/dL (4-19); BUN/Creat Ratio 16.1 RATIO (10-20); Calcium,Total 8.3 mg/dL (7.6-11.0); Carbon Dioxide 29.5 mmol/L (21.0-32.0); Chloride 95 mmol/L (98-108); Estimated Creatinine Clearance 12.06 ml/min (50-250); Glucose 154 mg/dL (70-99); Potassium 3.5 mmol/L (3.3-5.1)
--- NOTE | 2025-07-20 19:06 | PN.HOSP_ITS ---
Hospitalist Note Called to admit patient for anemia. Patient had an outpatient hemoglobin of 6.6 and here was 6.8. Unit of blood was ordered. Patient has not noted any bleeding. Using Dr. Ramsay, I was able to review her hemoglobins. Patient has been anemic for some time and going back to 12 days where her most recent was about a week ago and her hemoglobin was 7.2 at that time. She was hospitalized for roughly 12 days and did receive transfusion during that hospitalization. Discussed with patient that I was requested to see the patient for evaluation for admission. Patient politely declined saying that she would just like to get the blood which she is currently receiving and then continue with your TPN tonight. I did inform her that her creatinine has gone up slightly to 3.99 from her baseline around 3.6 so it was noted that her creatinine was around 4 several days ago. I think is reasonable for the patient to go home after her transfusi on but I did advise her to have follow-up lab work either later on this week or early next week. Patient said that she would comply. Informed Dr. Glasgow her decision to be discharged after her transfusion.
== END 2025-07-20 20:57 | disposition home or self-care (01) ==
PROVIDERS: Emergency Provider Emergency Medicine; PCP Family Medicine; Visit Provider Emergency Medicine
DX: D64.9 Anemia, unspecified (principal); C79.31 Secondary malignant neoplasm of brain; C18.9 Malignant neoplasm of colon, unspecified; N18.9 Chronic kidney disease, unspecified; Z92.21 Personal history of antineoplastic chemotherapy; Z90.5 Acquired absence of kidney
CPT/HCPCS: 36430; 80048; 85025; 86644; 86850; 86900; 86901; 99283; P9016; A4216

== ENCOUNTER 2025-07-29 10:22 | Outpatient (CLI) | payer BC, SELFPAY ==
[2025-07-29 10:37] VITALS: BP 167/73; PULSE 104; RESP 16; TEMP 36.9; O2SAT 100; BMI 18.8
[2025-07-29 11:06] VITALS: BP 162/67; PULSE 97; RESP 16; TEMP 36.9
[2025-07-29 12:06] VITALS: BP 159/69; PULSE 94; RESP 16; TEMP 37.2
[2025-07-29 13:05] VITALS: BP 168/74; PULSE 96; RESP 16; TEMP 37.2; O2SAT 95
== END 2025-07-29 23:59 | disposition home or self-care (01) ==
LOC: MEDOUTP 10:22
PROVIDERS: PCP Family Medicine; Referring Provider Internal Medicine Hematology & Oncology; Visit Provider Internal Medicine Hematology & Oncology
DX: D50.0 Iron deficiency anemia secondary to blood loss (chronic) (principal)
CPT/HCPCS: 36430; 86850; 86900; 86901; P9016; A4216

== ENCOUNTER 2025-08-25 11:32 | Outpatient (CLI) | payer BC, SELFPAY ==
[2025-08-25 11:54] VITALS: BP 171/74; PULSE 99; RESP 16; TEMP 36.2; O2SAT 99; BMI 19.1
[2025-08-25 12:20] VITALS: BP 145/65; PULSE 85; RESP 16; TEMP 36.4; O2SAT 98
[2025-08-25 13:30] VITALS: BP 140/69; PULSE 85; RESP 16; TEMP 36.2; O2SAT 97
[2025-08-25 14:11] VITALS: BP 154/70; PULSE 87; RESP 16; TEMP 36.2; O2SAT 98
== END 2025-08-25 23:59 | disposition home or self-care (01) ==
LOC: MEDOUTP 11:33
PROVIDERS: PCP Family Medicine; Referring Provider Internal Medicine Hematology & Oncology; Visit Provider Internal Medicine Hematology & Oncology
DX: N18.9 Chronic kidney disease, unspecified (principal); D63.1 Anemia in chronic kidney disease; D50.0 Iron deficiency anemia secondary to blood loss (chronic)
CPT/HCPCS: 36430; 86850; 86900; 86901; P9016; A4216